=== PATIENT | female | born 1975 | race Two or more races ===

== ENCOUNTER 2017-02-08 11:35 | Emergency (ER) | payer OTHER ==
[2017-02-08 12:01] VITALS: BP 130/87
--- NOTE | 2017-02-08 12:17 | UC ---
Complaint Female HPI - HPI Summary HPI Summary: Dysuria and frequency for 1-2 days. Last uti several months ago. no current vaginal symptoms such as discharge or pain. LMP 01/16 and denies . - History Of Current Complaint Chief Complaint: UCGU Stated Complaint: URINARY Time Seen by Provider: 02/08/17 12:00 Hx Obtained From: Patient Hx Last Menstrual Period: 01/16/17 Onset/Duration: Gradual Onset Timing: Constant Severity Initially: Mild Severity Currently: Mild Character: Dull Aggravating Factor(s): Urination Associated Signs And Symptoms: Negative: Fever, Vaginal Bleeding/Discharge, Vaginal Discharge, Nausea, Vomiting(# Of Episodes =), Genital Swelling, Genital Blisters, Retained Foregin Body (Specify) - Allergies/Home Medications Allergies/Adverse Reactions: Allergies Allergy/AdvReac Type Severity Reaction Status Date / Time No Known Allergies Allergy Verified 02/08/17 11:55 Home Medications: Home Medications Atenolol TAB* [Tenormin TAB* 25 MG] 25 mg PO DAILY 02/08/17 [History Confirmed 02/08/17] Hydrochlorothiazide TAB* [Hydrodiuril TAB*] 25 mg PO DAILY 02/08/17 [History Confirmed 02/08/17] Phenazopyridine HCl [Azo Urinary Pain Relief] 95 mg PO ONCE PRN 02/08/17 [ History Confirmed 02/08/17] PMH/Surg Hx/FS Hx/Imm Hx Endocrine History Of: Denies: Diabetes, Thyroid Disease Cardiovascular History Of: Reports: Hypertension Denies: Cardiac Disorders Respiratory History Of: Denies: COPD, Asthma GI/ History Of: Denies: Ulcer - Surgical History Surgical History: Yes Surgery Procedure, Year, and Place: OVARIAN CYSTECTOMY - Family History Known Family History: Positive: Other - no related issues. - Social History Alcohol Use: Rare Substance Use Type: None Smoking Status (MU): Former Smoker When Did the Patient Quit Smoking/Using Tobacco: 05/2016 Household Exposure Type: Cigarettes - Immunization History Most Recent Influenza Vaccination: no Review of Systems All Other Systems Reviewed And Are Negative: Yes Physical Exam Triage Information Reviewed: Yes Appearance: Well-Appearing, Well-Nourished, Obese Vital Signs: Initial Vital Signs Temp 98.7 F 02/08/17 11:58 Pulse 72 02/08/17 11:58 Resp 16 02/08/17 11:58 BP 130/87 02/08/17 11:58 Pulse Ox 98 02/08/17 11:58 Vital Signs Reviewed: Yes Eye Exam: Normal ENT Exam: Normal Neck exam: Normal Respiratory Exam: Normal Cardiovascular Exam: Normal Abdominal Exam: Other - Suprapubic tenderness without guarding. Abdomen Description: Positive: Soft. Negative: CVA Tenderness (R), CVA Tenderness (L), Distended, Guarding Neurological Exam: Normal Psychological Exam: Normal Skin Exam: Normal Complaint Female Dx - Differential Dx/Diagnosis Provider Diagnoses: dysuria. possible uti. Discharge - Discharge Plan Condition: Good Disposition: HOME Prescriptions: Sulfamethox/Trimethoprim DS* [Bactrim DS 800/160 TAB*] 1 tab PO BID #14 tab Patient Education Materials: Urinary Tract Infection in Women (ED) Referrals: Keyla Rosa PA [Primary Care Provider] -
== END 2017-02-08 12:22 | disposition home or self-care (01) ==
LOC: UCCORT 11:35
DX: R30.0 Dysuria (principal); Z87.440 Personal history of urinary (tract) infections; I10 Essential (primary) hypertension; E66.9 Obesity, unspecified; Z87.891 Personal history of nicotine dependence
CPT/HCPCS: 87086; 99212; G0463

== ENCOUNTER 2017-09-18 12:44 | Emergency (ER) | payer OTHER ==
[2017-09-18 13:39] VITALS: BP 109/84
--- NOTE | 2017-09-18 13:50 | UC ---
Headache HPI - HPI Summary HPI Summary: 41 year old female presents with complains fever, chills, and backaches. - History Of Current Complaint Chief Complaint: UCRespiratory Stated Complaint: HEADACHE,FEVER Time Seen by Provider: 09/18/17 13:50 Hx Obtained From: Patient Hx Last Menstrual Period: 09/01/17 Onset/Duration: Sudden Onset Onset Of Symptoms: Gradual Timing: Constant Aggravating Factor(s): Position Change, Bright Lights Allevating Factor(s): Nothing Associated Signs And Symptoms: Positive: Negative - Allergies/Home Medications Allergies/Adverse Reactions: Allergies Allergy/AdvReac Type Severity Reaction Status Date / Time No Known Allergies Allergy Verified 09/18/17 13:39 PMH/Surg Hx/FS Hx/Imm Hx Previously Healthy: Yes - Surgical History Surgical History: Yes Surgery Procedure, Year, and Place: OVARIAN CYSTECTOMY - Family History Known Family History: Positive: Other - no related issues. - Social History Alcohol Use: Rare Substance Use Type: None Smoking Status (MU): Former Smoker When Did the Patient Quit Smoking/Using Tobacco: 05/2016 Household Exposure Type: Cigarettes - Immunization History Most Recent Influenza Vaccination: no Review of Systems Constitutional: Negative Skin: Negative Eyes: Negative ENT: Sore Throat, Ear Ache, Nasal Discharge, Sinus Congestion, Sinus Pain/ Tenderness Respiratory: Cough Cardiovascular: Negative Gastrointestinal: Negative Genitourinary: Negative Motor: Negative Neurovascular: Negative Musculoskeletal: Negative Neurological: Negative Psychological: Negative All Other Systems Reviewed And Are Negative: Yes Physical Exam Triage Information Reviewed: Yes Vital Signs: Initial Vital Signs Temp 36.7 C 09/18/17 13:35 Pulse 68 09/18/17 13:35 Resp 18 09/18/17 13:35 BP 109/84 09/18/17 13:35 Pulse Ox 98 09/18/17 13:35 Vital Signs Reviewed: Yes Eye Exam: Normal ENT Exam: Normal ENT: Positive: Pharyngeal erythema, Nasal congestion, Nasal drainage, Sinus tenderness Dental Exam: Normal Neck exam: Normal Neck: Positive: 1 Respiratory Exam: Normal Cardiovascular Exam: Normal Abdominal Exam: Normal Musculoskeletal Exam: Normal Neurological Exam: Normal Psychological Exam: Normal Skin Exam: Normal Headache Course/Dx - Differential Dx/Diagnosis Provider Diagnoses: influenza. cough. fever Discharge - Discharge Plan Condition: Stable Disposition: HOME Prescriptions: Albuterol HFA INHALER* [Ventolin HFA Inhaler*] 1 puff INH Q6H PRN #1 mdi PRN Reason: Wheezing Guaifenesin-Codeine [Cheratussin AC] 1 teasp PO Q8H PRN #120 ml MDD 15 ml PRN Reason: Cough LoraTADine TAB(NF) [Claritin 10 MG TAB(NF)] 10 mg PO DAILY #30 tab Oseltamivir CAP* [Tamiflu CAP*] 75 mg PO BID #10 cap Patient Education Materials: Influenza (ED) Forms: *Work Release Referrals: Keyla Rosa PA [Primary Care Provider] -
== END 2017-09-18 14:23 | disposition home or self-care (01) ==
LOC: UCCORT 12:44
DX: J11.1 Influenza due to unidentified influenza virus with other respiratory manifestations (principal); R05 Cough; R50.9 Fever, unspecified; Z87.891 Personal history of nicotine dependence
CPT/HCPCS: 87502; 87651; 99212; G0463

== ENCOUNTER 2018-05-03 16:22 | Emergency (ER) | payer OTHER ==
[2018-05-03 16:45] VITALS: BP 131/82
--- NOTE | 2018-05-03 16:49 | UC ---
Throat Pain/Nasal [place]wey HPI - HPI Summary HPI Summary: The patient is a 42-year-old female with a 2 day history of sore throat and headache. She has also had postnasal drip but she denies any nasal congestion or stuffiness. She denies any fever or chills. She denies any cough chest pain or shortness of breath. She has no nausea vomiting or diarrhea. - History of Current Complaint Chief Complaint: UCGeneralIllness Stated Complaint: HEADACHE, SORE THROAT Time Seen by Provider: 05/03/18 16:30 Hx Obtained From: Patient Hx Last Menstrual Period: 04/30/18 Onset/Duration: Gradual Onset Severity: Moderate Pain Intensity: 5 Pain Scale Used: 0-10 Numeric Cough: None Associated Signs & Symptoms: Positive: Negative - Epiglottits Risk Factors Epiglottis Risk Factors: Negative - Allergies/Home Medications Allergies/Adverse Reactions: Allergies Allergy/AdvReac Type Severity Reaction Status Date / Time No Known Allergies Allergy Verified 05/03/18 16:36 Home Medications: Home Medications Acetaminophen TAB* [Tylenol TAB*] 650 mg PO Q4H PRN 05/03/18 [History Confirmed 05/03/18] Citalopram TAB* [CeleXA TAB*] 40 mg PO DAILY 05/03/18 [History Confirmed ] LoraTADine TAB(NF) [Claritin 10 MG TAB(NF)] 10 mg PO DAILY PRN 05/03/18 [ History Confirmed 05/03/18] PMH/Surg Hx/FS Hx/Imm Hx Previously Healthy: Yes - HELLP syndrome - Surgical History Surgical History: Yes Surgery Procedure, Year, and Place: OVARIAN CYSTECTOMY - Family History Known Family History: Positive: Hypertension, Other - no related issues. - Social History Alcohol Use: Occasionally Substance Use Type: None Smoking Status (MU): Former Smoker When Did the Patient Quit Smoking/Using Tobacco: 05/2016 Household Exposure Type: Cigarettes - Immunization History Most Recent Influenza Vaccination: no Review of Systems Constitutional: Negative Skin: Negative Eyes: Negative ENT: Sore Throat Respiratory: Negative Cardiovascular: Negative Gastrointestinal: Negative Genitourinary: Negative Motor: Negative Neurovascular: Negative Musculoskeletal: Negative Neurological: Headache Psychological: Negative Is Patient Immunocompromised?: No All Other Systems Reviewed And Are Negative: Yes Physical Exam Triage Information Reviewed: Yes Appearance: Well-Appearing, No Pain Distress, Well-Nourished Vital Signs: Initial Vital Signs Temp 98.2 F 05/03/18 16:40 Pulse 62 05/03/18 16:40 Resp 18 05/03/18 16:40 BP 131/82 05/03/18 16:40 Pulse Ox 100 05/03/18 16:40 Vital Signs Reviewed: Yes Eyes: Positive: Conjunctiva Clear ENT: Positive: Hearing grossly normal, Pharyngeal erythema, Uvula midline. Negative: Nasal drainage, TMs normal, Tonsillar swelling, Tonsillar exudate, Trismus, Muffled voice, Hoarse voice, Sinus tenderness Neck: Positive: Supple, Nontender, No Lymphadenopathy Respiratory: Positive: Lungs clear, Normal breath sounds, No respiratory distress, No accessory muscle use Cardiovascular: Positive: RRR Abdomen Description: Positive: Nontender, No Organomegaly Bowel Sounds: Positive: Present Musculoskeletal: Positive: ROM Intact, No Edema Neurological: Positive: Alert Psychological Exam: Normal Skin Exam: Normal Diagnostics - Laboratory Diagnostic Studies Completed/Ordered: strep (-) Throat Pain/Nasal Course/Dx - Differential Dx/Diagnosis Provider Diagnoses: viral URI/Pharyngitis Discharge - Sign-Out/Discharge Documenting (check all that apply): Patient Departure - Discharge Plan Condition: Stable Disposition: HOME Patient Education Materials: Pharyngitis (ED) Forms: *Work Release Referrals: Keyla Rosa PA [Primary Care Provider] - If Needed Additional Instructions: rest fluids tylenol or advil if needed - Billing Disposition and Condition Condition: STABLE Disposition: Home
== END 2018-05-03 17:10 | disposition home or self-care (01) ==
LOC: UCCORT 16:22
DX: J02.8 Acute pharyngitis due to other specified organisms (principal); Z87.891 Personal history of nicotine dependence
CPT/HCPCS: 87651; 99212; G0463

== ENCOUNTER 2018-11-02 08:00 | Emergency (ER) | payer OTHER ==
--- OUTSIDE RECORDS SUMMARY | 2018-11-02 08:08 | XMS REPORT | Continuity of Care Document ---
:1975 External Reference #:[id number] Author Name Keyla Rosa RPAC Address [address] [place] [address] Care Team Providers Name Role Phone Keyla Rosa RPAC Care Team Information Communications Analyst Unavailable Keyla Rosa RPAC Primary Care Physician Unavailable Payers Type Date Identification Numbers Payment Provider Subscriber Policy Number: [id number] Lifetime Benefit Solution Tanja Lares Group Number: [id number] [address] [address] PayID: [place] [address] Advance Directives Description No Information Available Problems Date Description Provider Status Onset: 05/31/2012 Obesity Keyla Rosa RPAC Active Onset: 05/31/2012 Hyperlipidemia Keyla Rosa RPAC Active Onset: 11/29/2011 Benign essential hypertension Keyla Rosa RPAC Active Onset: 01/15/2016 HELLP syndrome Keyla Rosa RPAC Active Note: 12/2015 Onset: 06/30/2016 Hyperglycemia Keyla Rosa RPAC Active Note: controlled with diet Onset: 04/05/2017 Dysthymia Keyla Rosa RPAC Active Onset: 12/28/2017 Acute upper respiratory infection, Keyla Rosa RPAC Resolved unspecified Resolved: 06/30/2018 Family History Date Family Member(s) Problem(s) Comments General Adopted Social History Type Date Description Comments Sex Unknown Lives With Diet Healthy, Well Balanced Occupation Currently Working @ [email or web address] project manager at [employer] Tobacco Use Start: Unknown End: Former Cigarette Smoker social Unknown ETOH Use Drinks Alcoholic Beverages Rarely Tobacco Use Start: Unknown End: Patient is a former smoker Unknown Smoking Status Reviewed: 10/15/18 Patient is a former smoker Allergies, Adverse Reactions, Alerts Date Description Reaction Status Severity Comments 06/29/2012 Novocain Active Medications Medication Date Status Form Strength Qnty SIG Indications Ordering Provider Irbesartan 10/15 Active Tablets 300mg 30tab 1 by mouth I10 Kwaku, s every day Angela Liriano Buspirone HCL 07/31 Active Tablets 5mg 120ta 1-2 tabs F41.9 Ames, bs by mouth Heri, bid-tid M.D. for anxiety Atenolol 07/19 Active Tablets 25mg 60tab 1 tab by I10 Kwaku, s mouth Heri, twice a M.D. day Hydrochlorothiazide 07/19 Active Tablets 25mg 30tab 1 by mouth I10 Kwaku, s every in [facility], the M.D. 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 Irbesartan 06/29 Hx Tablets 150mg 30tab take 1 I10 Ames, s tablet by Heri, - mouth once M.D. 10/15 /2018 Penicillin V 01/27 Hx Tablets 500mg 21tab 1 tab by N61.0 Kwaku, Potassium s mouth Heri, three M.D. times a day Hydrochlorothiazide 09/20 Hx Capsules 12.5mg 90cap 1 cap by I10 Kwaku, s mouth Heri, - every day M.D. 07/19 in the morning Nexium 09/20 Hx Capsules 20mg 90cap 1 by mouth K21.9 Nile, s every day Rocky Carvalho DO Work Note 08/16 Hx Evaluated Nile at [facility] Rocky Carvalho - Care on DO 09/2008/16/16. /2016 Please excuse from work. Atenolol 06/30 Hx Tablets 25mg 180ta 1 tab by I10 Kwaku, bs mouth once Heri, - a day M.D. 07/19 Prenatabs Rx 04/11 Hx Tablets 30tab 1 by mouth Nile, s bid Rocky Carvalho, DO Methyldopa 04/11 Hx Tablets 500mg 180ta 1 by mouth I10 Kwaku, bs twice a Heri, - day M.D. 06/29 Citalopram 03/17 Hx Tablets 10mg 90tab 1 by mouth F43.23 Elier Dowd s every day Rocky Carvalho, - DO 06/30 Labetalol HCL 03/04 Hx Tablets 100mg 2 tab by Nile, mouth Rocky Carvalho, - twice a DO Methyldopa 03/04 Hx Tablets 250mg 60tab 1 tab by I10 Nile, s mouth Rocky Carvalho, - twice a DO Note For Work 07/14 Hx Treated for foot Rocky Carvalho, - pain, DO 03/17 allow sneakers Klor-Con M20 06/23 Hx Tablets 20Meq 30tab 1 by mouth Nile, ER s every day Rocky Carvalho, - DO 07/14 Klor-Con 10 05/14 Hx Tablets 10Meq 21tab 1 by mouth Nile ER s every day Rocky Carvalho, - DO 06/23 Folic Acid 12/10 Hx Tablets 1mg 90tab 1 by mouth Jannette s every day Elena Escobar MD 11/11 Citalopram 08/12 Hx Tablets 10mg 30tab 1 by mouth Elier Bhatia s every day Elena marx MD 07/14 for taper Methyldopa 04/16 Hx Tablets 500mg 180ta take one Nile bs tablet by Rocky Carvalho, - mouth DO 03/04 twice a day Immunizations CPT Code Status Date Vaccine Lot # [id number] Given 08/25/2008 Pneumovax Injection 52838 Given 06/21/2007 flu vaccination 22054 Given 08/17/2005 flu vaccination Vital Signs Date Vital Result Comment 10/15/2018 10:10am BP Systolic Sitting Left Arm 142 mmHg BP Diastolic Sitting Left Arm 96 mmHg Body Temperature 98.1 F Heart Rate 64 /min Height 65.75 inches 5'5.75" Weight 226.00 lb BMI (Body Mass Index) 36.8 kg/m2 BSA (Body Surface Area) 2.10 m2 [place] body weight in kilograms 58 kg O2 % BldC Oximetry 97 % 07/31/2018 10:28am BP Systolic 169 mmHg BP Diastolic 94 mmHg Body Temperature 98.0 F Heart Rate 71 /min Respiratory Rate 18 /min Height 65.75 inches 5'5.75" Weight 224.50 lb BMI (Body Mass Index) 36.5 kg/m2 BSA (Body Surface Area) 2.10 m2 [place] body weight in kilograms 58 kg O2 % BldC Oximetry 97 % 06/29/2018 9:29am BP Systolic 153 mmHg BP Diastolic 104 mmHg Body Temperature 97.2 F Heart Rate 81 /min Respiratory Rate 18 /min Height 65.75 inches 5'5.75" Weight 227.00 lb BMI (Body Mass Index) 36.9 kg/m2 BSA (Body Surface Area) 2.10 m2 [place] body weight in kilograms 58 kg O2 % BldC Oximetry 97 % 12/28/2017 9:20am BP Systolic Sitting Left Arm 124 mmHg BP Diastolic Sitting Left Arm 80 mmHg Heart Rate 63 /min reg Respiratory Rate 24 /min Height 65.75 inches 5'5.75" Weight 230.00 lb BMI (Body Mass Index) 37.4 kg/m2 BSA (Body Surface Area) 2.12 m2 [place] body weight in kilograms 58 kg O2 % BldC Oximetry 98 % ra 07/19/2017 10:50am BP Systolic Sitting Right Arm 126 mmHg BP Diastolic Sitting Right Arm 80 mmHg Heart Rate 64 /min Height 65.75 inches 5'5.75" Weight 227.00 lb BMI (Body Mass Index) 36.9 kg/m2 BSA (Body Surface Area) 2.10 m2 [place] body weight in kilograms 58 kg O2 % BldC Oximetry 98 % ra 07/05/2017 8:58am BP Systolic Sitting Right Arm 140 mmHg BP Diastolic Sitting Right Arm 102 mmHg Heart Rate 76 /min Respiratory Rate 16 /min Height 65.75 inches 5'5.75" Weight 229.00 lb BMI (Body Mass Index) 37.2 kg/m2 BSA (Body Surface Area) 2.11 m2 [place] body weight in kilograms 58 kg 04/05/2017 9:02am BP Systolic Sitting Right Arm 134 mmHg BP Diastolic Sitting Right Arm 74 mmHg Body Temperature 97.7 F Heart Rate 70 /min Respiratory Rate 18 /min Height 65.75 inches 5'5.75" Weight 221.00 lb BMI (Body Mass Index) 35.9 kg/m2 BSA (Body Surface Area) 2.08 m2 [place] body weight in kilograms 58 kg O2 % BldC Oximetry 97 % ra 01/27/2017 2:51pm BP Systolic Sitting Right Arm 140 mmHg BP Diastolic Sitting Right Arm 90 mmHg Heart Rate 78 /min Height 65.75 inches 5'5.75" Weight 225.00 lb BMI (Body Mass Index) 36.6 kg/m2 BSA (Body Surface Area) 2.10 m2 [place] body weight in kilograms 58 kg O2 % BldC Oximetry 98 % 11/25/2016 1:52pm BP Systolic Sitting Right Arm 128 mmHg BP Diastolic Sitting Right Arm 80 mmHg Heart Rate 68 /min Height 65.75 inches 5'5.75" Weight 218.25 lb BMI (Body Mass Index) 35.5 kg/m2 BSA (Body Surface Area) 2.07 m2 O2 % BldC Oximetry 97 % 09/20/2016 9:45am BP Systolic Sitting Right Arm 142 mmHg BP Diastolic Sitting Right Arm 80 mmHg Heart Rate 66 /min Height 65.75 inches 5'5.75" Weight 216.50 lb BMI (Body Mass Index) 35.2 kg/m2 BSA (Body Surface Area) 2.06 m2 O2 % BldC Oximetry 96 % 08/16/2016 10:03am BP Systolic Sitting Right Arm 144 mmHg BP Diastolic Sitting Right Arm 100 mmHg Heart Rate 80 /min Height 65.75 inches 5'5.75" Weight 219.50 lb BMI (Body Mass Index) 35.7 kg/m2 BSA (Body Surface Area) 2.08 m2 07/15/2016 9:28am BP Systolic Sitting Right Arm 138 mmHg BP Diastolic Sitting Right Arm 100 mmHg Heart Rate 82 /min Height 65.75 inches 5'5.75" Weight 212.25 lb BMI (Body Mass Index) 34.5 kg/m2 BSA (Body Surface Area) 2.05 m2 06/30/2016 10:32am BP Systolic Sitting Right Arm 152 mmHg BP Diastolic Sitting Right Arm 100 mmHg Height 65.75 inches 5'5.75" Weight 215.00 lb BMI (Body Mass Index) 35.0 kg/m2 BSA (Body Surface Area) 2.06 m2 04/11/2016 3:39pm BP Systolic Sitting Right Arm 148 mmHg BP Diastolic Sitting Right Arm 90 mmHg Height 65.75 inches 5'5.75" Weight 207.00 lb BMI (Body Mass Index) 33.7 kg/m2 BSA (Body Surface Area) 2.02 m2 03/17/2016 2:11pm BP Systolic Sitting Right Arm 138 mmHg BP Diastolic Sitting Right Arm 80 mmHg Height 65.75 inches 5'5.75" Weight 220.00 lb BMI (Body Mass Index) 35.8 kg/m2 BSA (Body Surface Area) 2.08 m2 03/04/2016 2:01pm BP Systolic Sitting Right Arm 146 mmHg BP Diastolic Sitting Right Arm 100 mmHg Height 65.75 inches 5'5.75" Weight 171.00 lb BMI (Body Mass Index) 27.8 kg/m2 BSA (Body Surface Area) 1.87 m2 11/11/2015 3:09pm BP Systolic 118 mmHg BP Diastolic 74 mmHg Height 65.75 inches 5'5.75" Weight 224.00 lb BMI (Body Mass Index) 36.4 kg/m2 BSA (Body Surface Area) 2.09 m2 Last Menstrual Period [id number] 07/14/2015 10:50am BP Systolic 140 mmHg BP Diastolic 72 mmHg Weight 217.25 lb Last Menstrual Period [id number] 05/11/2015 10:14am Last Menstrual Period [id number] 05/11/2015 10:11am BP Systolic 132 mmHg BP Diastolic 76 mmHg Height 66 inches 5'6" Weight 212.00 lb BMI (Body Mass Index) 34.2 kg/m2 BSA (Body Surface Area) 2.05 m2 12/10/2014 10:20am BP Systolic 138 mmHg BP Diastolic 82 mmHg Height 66 inches 5'6" Weight 210.00 lb 08/12/2014 9:04am BP Systolic 134 mmHg BP Diastolic 82 mmHg Height 66 inches 5'6" Weight 216.00 lb 05/12/2014 1:26pm BP Systolic 132 mmHg BP Diastolic 90 mmHg Height 66 inches 5'6" Weight 208.00 lb 04/16/2014 1:00pm BP Systolic 158 mmHg BP Diastolic 92 mmHg Height 66 inches 5'6" Weight 209.00 lb 03/05/2014 1:30pm BP Systolic 132 mmHg BP Diastolic 78 mmHg Height 66 inches 5'6" Weight 203.00 lb 04/16/2013 10:05am BP Systolic 110 mmHg BP Diastolic 70 mmHg Height 66 inches 5'6" Weight 193.00 lb 04/02/2013 11:34am BP Systolic 110 mmHg BP Diastolic 68 mmHg Height 66 inches 5'6" Weight 191.00 lb 12/13/2012 9:10am BP Systolic 136 mmHg BP Diastolic 82 mmHg Height 66 inches 5'6" Weight 196.00 lb 08/15/2012 10:58am BP Systolic 128 mmHg BP Diastolic 84 mmHg Height 66 inches 5'6" Weight 213.00 lb 07/03/2012 1:20pm BP Systolic 118 mmHg BP Diastolic 60 mmHg Height 66 inches 5'6" Weight 211.00 lb 06/29/2012 1:42pm BP Systolic 128 mmHg BP Diastolic 68 mmHg Height 66 inches 5'6" Weight 211.00 lb 03/06/2012 10:27am BP Systolic 122 mmHg BP Diastolic 76 mmHg Height 66 inches 5'6" Weight 211.00 lb 12/01/2011 10:13am BP Systolic 150 mmHg BP Diastolic 90 mmHg Height 66 inches 5'6" Weight 212.00 lb Results Test Date Facility Test Result H/L Range Note Rapid Influenza 09/26/2018 [facility] Influenza A NEGATIVE Negative 1 A & B Molecular [phone] Molecular Influenza B Molecular NEGATIVE Negative Glycohemoglobin 06/29/2018 [facility] Glycohemoglobin 6.0 % N 4.2-6.3 2, 3 A1c [address] [facility] (A1c) [place], [place] [id number] [phone] eAG 126 mg/dL Basic Metabolic Panel 06/29/2018 [facility] Glucose 92 mg/dL N 74-106 [address] [place], [place] [id number] [phone] BUN 10 mg/dL N 7-18 Creatinine 0.9 mg/dL N 0.6-1.3 Glom Filtration Rate, Estimate >60 mL/min >60 If >60 mL/min >60 4 BUN/Creat 11.1 ratio Sodium 140 mmol/L N 136-145 Potassium 3.9 mmol/L N 3.5-5.1 Chloride 104 mmol/L N 98-107 Carbon Dioxide 28 mmol/L N 21-32 Anion Gap 8 mEq/L N 8-16 Calcium 9.0 mg/dL N 8.5-10.1 LDL Cholesterol Profile 06/29/2018 [facility] Cholesterol 181 mg/dL <[address] [place] [address] [phone] Triglycerides 91 mg/dL <150 6 HDL Cholesterol 45 mg/dL >40 7 LDL-Cholesterol 118 mg/dL < 100 8 Liver Function Tests 06/29/2018 [facility] Total Protein 8.2 g/dL N 6.4-8.[address] [place] [address] [phone] Albumin 4.0 g/dL N 3.4-5.0 Globulin 4.2 g/dL N 1.9-4.3 Alb/Glob 1.0 ratio Bilirubin,Total 0.7 mg/dL N 0.2-1.0 Bilirubin,Direct 0.1 mg/dL N 0.0-0.2 Bilirubin,Indirect 0.6 mg/dL N 0.0-0.9 Sgot/Ast 10 U/L Low 15-37 9 SGPT/Alt 20 U/L N 12-78 Alkaline Phosphatase 105 U/L N 45-117 Urine Culture 06/29/2018 [facility] Urine Culture MIXED URETHRAL F [address] <SEE NOTE> [place] [address] [phone] Quantity > 100,000 CFU/mL 11 Urine Dipstick 06/29/2018 [facility] Ua Color Yellow Yellow Ua Clarity Clear Clear Ua Leuko Positive (+) Negative Ua Nitrite Negative Negative Ua Urobilinogen + Low 0.2 - 1.0 E.U./dL Ua Protein + Negative Ua PH 6.0 Low 6.5-7.5 Ua Blood Negative Negative Ua Specific Rock 1.030 1.010-1.030 Ua Ketones + Negative Ua Bilirubin 1+ High Negative Ua Glucose Negative Negative pH Ur Strip.auto 06/07/2018 N2N/CCD Import pH Ur Strip.auto 5.0 Low 6.5- 7.5 Urine total 06/07/2018 N2N/CCD Import Urine total Negative Negative bilirubin bilirubin detection by detection by automated test automated test strip Urine human 06/07/2018 N2N/CCD Import Urine human Negative Negative chorionic chorionic gonadotropin gonadotropin (hCG) detection (hCG) detection Urine hemoglobin 06/07/2018 N2N/CCD Import Urine hemoglobin Negative Negative detection by detection by automated test automated test strip strip Urine glucose 06/07/2018 N2N/CCD Import Urine glucose 100 High Negative measurement by measurement by automated test automated test strip strip (mass/volume) Urine appearance 06/07/2018 N2N/CCD Import Urine appearance Clear Clear determination determination Specific gravity 06/07/2018 N2N/CCD Import Specific gravity 1.025 1.010- 1.030 of Urine by of Urine by Automated test Automated test strip strip Prot Ur 06/07/2018 N2N/CCD Import Prot Ur 100 High Negative Strip.auto-mCnc Strip.auto-mCnc Nitrite Ur Ql 06/07/2018 N2N/CCD Import Nitrite Ur Ql Positive High Negative Strip.auto Strip.auto Urine HCG 06/07/2018 [facility] Urine HCG NEGATIVE Negative 12, (Qualitative) [address] (Qualitative) 13 [place] [address] [phone] Source: URINE, CLEAN CAT <SEE NOTE> 14 Ua RFX Micro & Culture 06/07/2018 [facility] Urine Color ORANGE Yellow II [address] [place] [address] [phone] Urine Clarity CLEAR Clear Urine Glucose - Dipstick 100 mg/dL High Negative Urine Bilirubin - Dipstick NEGATIVE Negative Urine Ketone 15 mg/dL High Negative Urine Specific Rock 1.025 N 1.010-1.030 Urine Blood NEGATIVE Negative Urine PH 5.0 Low 6.5-7.5 Urine Protein - Dipstick 100 mg/dL High Negative Urine Urobilinogen - Dipstick >=8.0 E.U./dL High 0.2-1.0 Urine Nitrite - Dipstick POSITIVE Abnormal Negative Urine Leuk Esterase TRACE Abnormal Negative Urine RBC 0-2 rbc/hpf 0-2 Urine WBC 2-5 wbc/hpf 0-7 Urine Epithelial Cells MODERATE /lpf None Seen 15 Urine Bacteria FEW None Seen Source: URINE, CLEAN CAT <SEE NOTE> 16 Culture If 06/07/2018 [facility] Culture If CULTURE TO 17 Indicated Comment [address] Indicated Comment FOLLO <[place] [address] NOTE> [phone] Source: URINE, CLEAN CAT <SEE NOTE> 18 Urine Culture 06/07/2018 [facility] Urine Culture URETHRAL AMADOU [address] [place] [address] [phone] Quantity > 100,000 CFU/mL 19 Bacteria 06/07/2018 N2N/CCD Import Bacteria Few None Seen detection in detection in urine sediment urine sediment by light micr by light microscopy Color Ur 06/07/2018 N2N/CCD Import Color Ur [place] Yellow Epithelial 06/07/2018 N2N/CCD Import Epithelial Moderate None Seen cells detection cells in urine detection in sediment by li urine sediment by light microscopy Ketones Ur 06/07/2018 N2N/CCD Import Ketones Ur 15 High Negative Strip.auto-mCnc Strip.auto-mCn c Laboratory 06/07/2018 N2N/CCD Import Laboratory Culture To comment [Text] comment [Text] Follow in Report in Report Narrative Narrative Leukocyte 06/07/2018 N2N/CCD Import Leukocyte Trace High Negative esterase Ur Ql esterase Ur Ql Strip.auto Strip.auto Laboratory test 05/03/2018 [facility] Rapid Strep Negative Negative 20 finding [phone] Molecular Renal Function 04/05/2017 [facility] Glucose 101 mg/dL N 74-106 21 Panel [address] [place], [place] [id number] [phone] BUN 11 mg/dL N 7-18 Creatinine 0.8 mg/dL N 0.6-1.3 Glom Filtration Rate, Estimate >60 mL/min >60 If >60 mL/min >60 22 BUN/Creat 13.7 ratio Sodium 140 mmol/L N 136-145 Potassium 3.8 mmol/L N 3.5-5.1 Chloride 104 mmol/L N 98-107 Carbon Dioxide 29 mmol/L N 21-32 Anion Gap 7 mEq/L Low 8-16 Calcium 9.2 mg/dL N 8.5-10.1 Phosphorous 2.4 mg/dL Low 2.5-4.0 Albumin 3.7 g/dL N 3.4-5.0 Ua RFX Micro & Culture 03/27/2017 [facility] Urine Color YELLOW Yellow 23 II [address] [place], [place] [id number] [phone] Urine Clarity CLEAR Clear Urine Glucose - Dipstick NEGATIVE mg/dL Negative Urine Bilirubin - Dipstick NEGATIVE Negative Urine Ketone TRACE mg/dL High Negative Urine Specific Rock 1.025 N 1.010-1.030 Urine Blood NEGATIVE Negative Urine PH 6.0 Low 6.5-7.5 Urine Protein - Dipstick NEGATIVE mg/dL Negative Urine Urobilinogen - Dipstick 0.2 E.U./dL N 0.2-1.0 Urine Nitrite - Dipstick NEGATIVE Negative Urine Leuk Esterase NEGATIVE Negative Source: URINE, CLEAN CAT <SEE NOTE> 24 Urine Culture 03/27/2017 [facility] Urine Culture URETHRAL AMADOU [address] [place], [place] [id number] [phone] Quantity > 100,000 CFU/mL N 25 Laboratory test 02/08/2017 [facility] Urine Culture SEE RESULT 26, 27 finding [phone] BELOW CBS W/Automated 06/23/2016 [facility] White Blood 8.6 K/uL N 3.1-[address] Count 0.7 [place] [address] [phone] Red Blood Count 4.69 M/uL N 3.90-5.40 Hemoglobin 12.8 gm/dL N 11.6-15.8 Hematocrit 38.5 % N 36.0-46.1 Mean Cell Volume 82.1 fl N 80.9-99.0 Mean Corpuscular HGB 27.3 pg N 25.9-32.7 Mean Corpuscular HGB Conc 33.2 g/dL N 30.8-34.3 Platelet Count 272 K/uL N 155-360 Red Cell Distri Width SD 46.2 fl N 3-47 Red Cell Distri Width %CV 15.7 % High 11.7-14.4 Mean Platelet Volume 10.2 fL N 8.9-12.4 Neut% 68.7 % N 40.4-72.8 Lymph % 24.3 % N 17.0-46.1 [place] % 5.5 % N 4.3-13.2 Eo% 1.4 % N 0.0-6.6 Bas% 0.1 % N 0.0-1.1 Neut# 5.88 K/uL N 1.8-7.0 Lymph # 2.08 K/uL N 1.8-7.0 [place] # 0.47 K/uL N 0.3-0.9 Eos # 0.12 K/uL N 0.0-0.5 Baso # 0.01 K/uL N 0.0-0.1 Comprehensive Metabolic 06/23/2016 [facility] Glucose 98 mg/dL N 74-[address] [place], [place] [id number] [phone] BUN 9 mg/dL N 7-18 Creatinine 0.8 mg/dL N 0.6-1.3 Glom Filtration Rate, Estimate >60 mL/min N >60 If >60 mL/min N >60 29 BUN/Creat 11.2 ratio N Sodium 140 mmol/L N 136-145 Potassium 3.5 mmol/L N 3.5-5.1 Chloride 104 mmol/L N 98-107 Carbon Dioxide 31 mmol/L N 21-32 Anion Gap 5 mEq/L Low 8-16 Calcium 9.1 mg/dL N 8.5-10.1 Total Protein 7.6 g/dL N 6.4-8.2 Albumin 3.7 g/dL N 3.4-5.0 Globulin 3.9 g/dL N 1.9-4.3 Alb/Glob 0.9 ratio N Bilirubin,Total 0.5 mg/dL N 0.2-1.0 Sgot/Ast 7 U/L Low 15-37 30 SGPT/Alt 18 U/L N 12-78 Alkaline Phosphatase 102 U/L N 45-117 Laboratory test finding 06/23/2016 [facility] Lipase 130 U/L N 73-393 [address] [place] [address] [phone] Lactic Acid 0.8 mmol/L N 0.4-1.9 Laboratory test 06/23/2016 N2N/CCD Import Alanine Aminotransferase 18 12 -78 finding (Alt/SGPT) Albumin/Globulin Ratio 0.9 BUN/Creatinine Ratio 11.2 Basophils # (Auto) 0.01 0.0-0.1 Basophils (%) (Auto) 0.1 0.0-1.1 Blood Urea Nitrogen 9 7-18 Calcium Level 9.1 8.5-10.1 Carbon Dioxide Level 31 21-32 Chloride Level 104 98-107 Eosinophils # (Auto) 0.12 0.0-0.5 Eosinophils (%) (Auto) 1.4 0.0-6.6 Glucose Screen 98 74-106 Lymphocytes (%) (Auto) 24.3 17.0-46.1 Mean Corpuscular Hemoglobin 27.3 25.9-32.7 Mean Corpuscular Hemoglobin Concent 33.2 30.8-34.3 Mean Corpuscular Volume 82.1 80.9-99.0 Monocytes # (Auto) 0.47 0.3-0.9 Monocytes (%) (Auto) 5.5 4.3-13.2 Neutrophils (%) (Auto) 68.7 40.4-72.8 Potassium Level 3.5 3.5-5.1 RDW Coefficient of Variation 15.7 High 11.7-14.4 Red Cell Distribution Width 46.2 3-47 Sodium Level 140 136-145 Total Bilirubin 0.5 0.2-1.0 Chlamydia/GC 06/23/2016 [facility] Chlamydia Negative N Negative Joan, Urine [address] Trachomatis,[place] [address] -Joan [phone] Neisseria Gonorrhoeae,Ur -Joan Negative N Negative 31 Urine Ketones 06/23/2016 N2N/CCD Import Urine Ketones Negative Negative Aspartate Amino 06/23/2016 N2N/CCD Import Aspartate Amino 7 Low 15-37 Transf (Ast/Sgot) Transf (Ast/Sgot) Lactic Acid Level 06/23/2016 N2N/CCD Import Lactic Acid Level 0.8 0.4- 1.9 Lymphocytes # 06/23/2016 N2N/CCD Import Lymphocytes # 2.08 1.8-7.0 (Auto) (Auto) Neutrophils # 06/23/2016 N2N/CCD Import Neutrophils # 5.88 1.8-7.0 (Auto) (Auto) Urine HCG 06/23/2016 [facility] Urine HCG NEGATIVE N Negative 32 (Qualitative) [address] (Qualitative) [place] [address] [phone] Source: URINE, CLEAN CAT <SEE NOTE> 33 Urine Glucose (Ua) 06/23/2016 N2N/CCD Import Urine Glucose Negative Negative (Ua) Laboratory test 06/23/2016 N2N/CCD Import Urine Bilirubin Negative Negative finding Urine Leukocyte Esterase Negative Negative Urine Nitrite Negative Negative Urine Protein Negative Negative Urine Urobilinogen 0.2 0.2-1.0 Ua RFX Microscopic & 06/23/2016 [facility] Urine Color YELLOW N Yellow Cult If Inicated [address] [place] [address] [phone] Urine Clarity CLEAR N Clear Urine Glucose - Dipstick NEGATIVE mg/dL N Negative Urine Bilirubin - Dipstick NEGATIVE N Negative Urine Ketone NEGATIVE mg/dL N Negative Urine Specific Rock 1.010 N 1.010-1.030 Urine Blood NEGATIVE N Negative Urine PH 6.0 Low 6.5-7.5 Urine Protein - Dipstick NEGATIVE mg/dL N Negative Urine Urobilinogen - Dipstick 0.2 E.U./dL N 0.2-1.0 Urine Nitrite - Dipstick NEGATIVE N Negative Urine Leuk Esterase NEGATIVE N Negative Source: URINE, CLEAN CAT <SEE NOTE> 34 CBC W/Automated 01/14/2016 [facility] White Blood 15.1 K/uL High 3.1-10.[address] [place] [address] [phone] Red Blood Count 2.93 M/uL Low 3.90-5.40 Hemoglobin 8.6 gm/dL Low 11.6-15.8 Hematocrit 26.9 % Low 36.0-46.1 Mean Cell Volume 91.8 fl 80.9-99.0 Mean Corpuscular HGB 29.4 pg 25.9-32.7 Mean Corpuscular HGB Conc 32.0 g/dL 30.8-34.3 Platelet Count 100 K/uL Low 155-360 35 Red Cell Distri Width SD 53.8 fl High 3-47 Red Cell Distri Width %CV 18.4 % High 11.7-14.4 Mean Platelet Volume 12.6 fL High 8.9-12.4 Neut% 72.1 % 40.4-72.8 Lymph % 23.0 % 17.0-46.1 [place] % 4.4 % 4.3-13.2 Eo% 0.4 % 0.0-6.6 Bas% 0.1 % 0.0-1.1 Neut# 10.84 K/uL High 1.8-7.0 Lymph # 3.47 K/uL 1.8-7.0 [place] # 0.67 K/uL 0.3-0.9 Eos # 0.06 K/uL 0.0-0.5 Baso # 0.02 K/uL 0.0-0.1 Laboratory test 01/14/2016 [facility] Slide Review . [address] [place] [address] [phone] Comprehensive 01/14/2016 [facility] Glucose 81 mg/dL 74-106 Metabolic Panel [address] [place] [address] [phone] BUN 13 mg/dL 7-18 Creatinine 0.6 mg/dL 0.6-1.3 Glom Filtration Rate, Estimate >60 mL/min >60 If >60 mL/min >60 37 BUN/Creat 21.6 ratio Sodium 141 mmol/L 136-145 Potassium 3.2 mmol/L Low 3.5-5.1 Chloride 107 mmol/L 98-107 Carbon Dioxide 25 mmol/L 21-32 Anion Gap 9 mEq/L 8-16 Calcium 5.8 mg/dL Low 8.5-10.1 Total Protein 5.0 g/dL Low 6.4-8.2 Albumin 1.8 g/dL Low 3.4-5.0 Globulin 3.2 g/dL 1.9-4.3 Alb/Glob 0.6 ratio Bilirubin,Total 0.4 mg/dL 0.2-1.0 Sgot/Ast 38 U/L High 15-37 SGPT/Alt 138 U/L High 12-78 Alkaline Phosphatase 134 U/L High 45-117 Laboratory test 01/13/2016 [facility] Magnesium 7.1 mg/dL High 1.8-2.4 38 finding [address] [place], [place] [address] [phone] Comprehensive 01/13/2016 [facility] Glucose 137 mg/dL High 74-106 Metabolic Panel [address] [place], [place] [address] [phone] BUN 11 mg/dL 7-18 Creatinine 0.6 mg/dL 0.6-1.3 Glom Filtration Rate, Estimate >60 mL/min >60 If >60 mL/min >60 39 BUN/Creat 18.3 ratio Sodium 139 mmol/L 136-145 Potassium 3.7 mmol/L 3.5-5.1 Chloride 106 mmol/L 98-107 Carbon Dioxide 24 mmol/L 21-32 Anion Gap 9 mEq/L 8-16 Calcium 6.1 mg/dL Low 8.5-10.1 Total Protein 5.5 g/dL Low 6.4-8.2 Albumin 1.9 g/dL Low 3.4-5.0 Globulin 3.6 g/dL 1.9-4.3 Alb/Glob 0.5 ratio Bilirubin,Total 0.5 mg/dL 0.2-1.0 Sgot/Ast 55 U/L High 15-37 SGPT/Alt 180 U/L High 12-78 Alkaline Phosphatase 152 U/L High 45-117 Laboratory test 01/13/2016 [facility] 643 U/L High 84-246 40 finding [address] [place] [address] [phone] CBC W/Automated 01/13/2016 [facility] White Blood 21.8 K/uL High 3.1-10.[address] [place] [address] [phone] Red Blood Count 3.01 M/uL Low 3.90-5.40 Hemoglobin 9.0 gm/dL Low 11.6-15.8 Hematocrit 27.0 % Low 36.0-46.1 Mean Cell Volume 89.7 fl 80.9-99.0 Mean Corpuscular HGB 29.9 pg 25.9-32.7 Mean Corpuscular HGB Conc 33.3 g/dL 30.8-34.3 Platelet Count 81 K/uL Low 155-360 Red Cell Distri Width SD 51.3 fl High 3-47 Red Cell Distri Width %CV 17.5 % High 11.7-14.4 Mean Platelet Volume 12.9 fL High 8.9-12.4 Neut% 82.0 % High 40.4-72.8 Lymph % 13.2 % Low 17.0-46.1 [place] % 4.7 % 4.3-13.2 Eo% 0.0 % 0.0-6.6 Bas% 0.1 % 0.0-1.1 Neut# 17.85 K/uL High 1.8-7.0 Lymph # 2.87 K/uL 1.8-7.0 [place] # 1.03 K/uL High 0.3-0.9 Eos # 0.01 K/uL 0.0-0.5 Baso # 0.02 K/uL 0.0-0.1 Laboratory test 01/13/2016 [facility] Fibrinogen 445 mg/dL 188-480 41 finding [address] [place] [address] [phone] Differential-WBC 01/13/2016 [facility] Total Cells 100 #CELLS Confirm [address] Counted [place], [place] [id number] [phone] Band% 2 % 0-8 Neutrophils% 89 % High 33-73 Lymph% 6 % Low 17-56 Monocyte% 3 % 0-10 Platelet Estimate MARKED DECREASE Polychromasia 1+ Anisocytosis 2+ Helmet Cells 0-1+ Laboratory test 01/13/2016 [facility] Fibrinogen 416 mg/dL 188-480 42 finding [address] [place] [address] [phone] Protime 01/13/2016 [facility] Protime 13.0 seconds 12.1-14.9 [address] [place], [place] [id number] [phone] Inr 1.0 0.9-1.1 43 Laboratory test 01/13/2016 [facility] Act Partial 24.9 23.9-34.3 44 finding [address] [address] Time [phone] Comprehensive 01/13/2016 [facility] Glucose 180 mg/dL High 74-106 Metabolic Panel [address] [place] [address] [phone] BUN 12 mg/dL 7-18 Creatinine 0.8 mg/dL 0.6-1.3 Glom Filtration Rate, Estimate >60 mL/min >60 If >60 mL/min >60 45 BUN/Creat 15.0 ratio Sodium 137 mmol/L 136-145 Potassium 3.9 mmol/L 3.5-5.1 Chloride 103 mmol/L 98-107 Carbon Dioxide 21 mmol/L 21-32 Anion Gap 13 mEq/L 8-16 Calcium 6.6 mg/dL Low 8.5-10.1 46 Total Protein 5.6 g/dL Low 6.4-8.2 47 Albumin 1.9 g/dL Low 3.4-5.0 Globulin 3.7 g/dL 1.9-4.3 Alb/Glob 0.5 ratio Bilirubin,Total 0.7 mg/dL 0.2-1.0 Sgot/Ast 72 U/L High 15-37 SGPT/Alt 201 U/L High 12-78 Alkaline Phosphatase 158 U/L High 45-117 Laboratory test 01/13/2016 [facility] Magnesium 7.0 mg/dL High 1.8-2.4 [address] [place] [address] [phone] Laboratory test 01/13/2016 [facility] Slide Review DIFF [address] ORDERED [place], [place] [id number] [phone] CBC W/Automated 01/13/2016 [facility] White Blood 21.0 K/uL High 3.1-10.[address] [place] [address] [phone] Red Blood Count 3.07 M/uL Low 3.90-5.40 Hemoglobin 9.2 gm/dL Low 11.6-15.8 Hematocrit 27.2 % Low 36.0-46.1 Mean Cell Volume 88.6 fl 80.9-99.0 Mean Corpuscular HGB 30.0 pg 25.9-32.7 Mean Corpuscular HGB Conc 33.8 g/dL 30.8-34.3 Platelet Count 66 K/uL Low 155-360 50 Red Cell Distri Width SD 51.5 fl High 3-47 Red Cell Distri Width %CV 17.3 % High 11.7-14.4 Neut# 18.45 K/uL High 1.8-7.0 Lymph # 1.83 K/uL 1.8-7.0 [place] # 0.72 K/uL 0.3-0.9 Eos # 0.00 K/uL 0.0-0.5 Baso # 0.01 K/uL 0.0-0.1 Laboratory test 01/12/2016 [facility] Placenta, See Note [address] [place] [address] Trimester [phone] Comprehensive 01/12/2016 [facility] Glucose 141 mg/dL High 74-10 Metabolic Panel [address] [place], [place] [id number] [phone] BUN 11 mg/dL 7-18 Creatinine 0.8 mg/dL 0.6-1.3 Glom Filtration Rate, Estimate >60 mL/min >60 If >60 mL/min >60 52 BUN/Creat 13.7 ratio Sodium 134 mmol/L Low 136-145 Potassium 3.9 mmol/L 3.5-5.1 Chloride 101 mmol/L 98-107 Carbon Dioxide 26 mmol/L 21-32 Anion Gap 7 mEq/L Low 8-16 Calcium 6.9 mg/dL Low 8.5-10.1 Total Protein 6.6 g/dL 6.4-8.2 Albumin 2.2 g/dL Low 3.4-5.0 Globulin 4.4 g/dL High 1.9-4.3 Alb/Glob 0.5 ratio Bilirubin,Total 0.9 mg/dL 0.2-1.0 Sgot/Ast 98 U/L High 15-37 SGPT/Alt 235 U/L High 12-78 Alkaline Phosphatase 178 U/L High 45-117 Laboratory 01/12/2016 [facility] Magnesium 6.7 mg/dL High 1.8-2.4 53 test finding [address] [place] [address] [phone] Drugs Of 01/12/2016 [facility] Amphetamines Negative Abuse-Urine [address] [facility] (Urine) Screen 7 [place] [address] [phone] Barbiturates (Urine) Negative Benzodiazepines (Urine) Negative Cannabinoids (Urine) Negative Cocaine Metabolite (Urine) Negative Methadone (Urine) Negative Opiates (Urine) Negative Urine Cutoffs * 54 Laboratory test 01/12/2016 [facility] Magnesium 5.2 mg/dL High 1.8-2.4 55 finding [address] [place] [address] [phone] CBC W/Automated 01/12/2016 [facility] White Blood 13.7 K/uL High 3.1-10.[address] [place] [address] [phone] Red Blood Count 3.60 M/uL Low 3.90-5.40 Hemoglobin 10.7 gm/dL Low 11.6-15.8 Hematocrit 31.2 % Low 36.0-46.1 Mean Cell Volume 86.7 fl 80.9-99.0 Mean Corpuscular HGB 29.7 pg 25.9-32.7 Mean Corpuscular HGB Conc 34.3 g/dL 30.8-34.3 Platelet Count 33 K/uL Low 155-360 Red Cell Distri Width SD 49.9 fl High 3-47 Red Cell Distri Width %CV 16.8 % High 11.7-14.4 Neut% 86.0 % High 40.4-72.8 Lymph % 11.2 % Low 17.0-46.1 [place] % 2.6 % Low 4.3-13.2 Eo% 0.1 % 0.0-6.6 Bas% 0.1 % 0.0-1.1 Neut# 11.81 K/uL High 1.8-7.0 Lymph # 1.54 K/uL Low 1.8-7.0 [place] # 0.36 K/uL 0.3-0.9 Eos # 0.01 K/uL 0.0-0.5 Baso # 0.01 K/uL 0.0-0.1 Laboratory test finding 01/12/2016 [facility] LDH 1035 U/L High 84-246 [address] [place] [address] [phone] Comprehensive Metabolic 01/12/2016 [facility] Glucose 150 mg/dL High 74-106 Panel [address] [place] [address] [phone] BUN 11 mg/dL 7-18 Creatinine 0.8 mg/dL 0.6-1.3 Glom Filtration Rate, Estimate >60 mL/min >60 If >60 mL/min >60 56 BUN/Creat 13.7 ratio Sodium 134 mmol/L Low 136-145 Potassium 3.6 mmol/L 3.5-5.1 Chloride 102 mmol/L 98-107 Carbon Dioxide 22 mmol/L 21-32 Anion Gap 10 mEq/L 8-16 Calcium 7.6 mg/dL Low 8.5-10.1 Total Protein 6.2 g/dL Low 6.4-8.2 Albumin 2.1 g/dL Low 3.4-5.0 Globulin 4.1 g/dL 1.9-4.3 Alb/Glob 0.5 ratio Bilirubin,Total 1.9 mg/dL High 0.2-1.0 Sgot/Ast 157 U/L High 15-37 SGPT/Alt 254 U/L High 12-78 Alkaline Phosphatase 170 U/L High 45-117 Laboratory test 01/12/2016 [facility] Act Partial 31.7 seconds 23.9-34.3 [address] [place] [address] [phone] Protime 01/12/2016 [facility] Protime 13.5 seconds 12.1-14.[address] [place] [address] [phone] Inr 1.0 0.9-1.1 58 CBC W/Automated 01/12/2016 [facility] White Blood 17.8 K/uL High 3.1-10.[address] [place] [address] [phone] Red Blood Count 3.65 M/uL Low 3.90-5.40 Hemoglobin 11.0 gm/dL Low 11.6-15.8 Hematocrit 32.2 % Low 36.0-46.1 Mean Cell Volume 88.2 fl 80.9-99.0 Mean Corpuscular HGB 30.1 pg 25.9-32.7 Mean Corpuscular HGB Conc 34.2 g/dL 30.8-34.3 Platelet Count 49 K/uL Low 155-360 59 Red Cell Distri Width SD 51.2 fl High 3-47 Red Cell Distri Width %CV 17.7 % High 11.7-14.4 Neut% 82.9 % High 40.4-72.8 60 Lymph % 11.7 % Low 17.0-46.1 [place] % 5.2 % 4.3-13.2 Eo% 0.1 % 0.0-6.6 Bas% 0.1 % 0.0-1.1 Neut# 14.71 K/uL High 1.8-7.0 Lymph # 2.08 K/uL 1.8-7.0 [place] # 0.93 K/uL High 0.3-0.9 Eos # 0.01 K/uL 0.0-0.5 Baso # 0.02 K/uL 0.0-0.1 Protime 01/12/2016 [facility] Protime 13.6 seconds 12.1-14.[address] [place] [address] [phone] Inr 1.0 0.9-1.1 61 Laboratory test 01/12/2016 [facility] Act Partial 27.6 seconds 23.9-34.3 [address] [place] [address] [phone] Fibrinogen 545 mg/dL High 188-480 63 Liver Function Tests 01/12/2016 [facility] Total Protein 6.4 g/dL 6.4-8.2 [address] [place] [address] [phone] Albumin 2.1 g/dL Low 3.4-5.0 Globulin 4.3 g/dL 1.9-4.3 Alb/Glob 0.5 ratio Bilirubin,Total 1.2 mg/dL High 0.2-1.0 Bilirubin,Direct 0.4 mg/dL High 0.0-0.2 Bilirubin,Indirect 0.8 mg/dL 0.0-0.9 Sgot/Ast 103 U/L High 15-37 SGPT/Alt 234 U/L High 12-78 Alkaline Phosphatase 179 U/L High 45-117 Laboratory test 01/12/2016 [facility] LDH 899 U/L High 84-246 finding [address] [place] [address] [phone] CBC W/Automated 01/12/2016 [facility] White Blood 14.7 K/uL High 3.1-10.7 Diff 134 [facility] [place] [address] [phone] Red Blood Count 3.62 M/uL Low 3.90-5.40 Hemoglobin 11.0 gm/dL Low 11.6-15.8 Hematocrit 31.4 % Low 36.0-46.1 Mean Cell Volume 86.7 fl 80.9-99.0 Mean Corpuscular HGB 30.4 pg 25.9-32.7 Mean Corpuscular HGB Conc 35.0 g/dL High 30.8-34.3 Platelet Count 45 K/uL Low 155-360 Red Cell Distri Width SD 49.7 fl High 3-47 Red Cell Distri Width %CV 17.2 % High 11.7-14.4 Neut% 85.3 % High 40.4-72.8 Lymph % 11.7 % Low 17.0-46.1 [place] % 2.9 % Low 4.3-13.2 Eo% 0.0 % 0.0-6.6 Bas% 0.1 % 0.0-1.1 Neut# 12.49 K/uL High 1.8-7.0 Lymph # 1.72 K/uL Low 1.8-7.0 [place] # 0.42 K/uL 0.3-0.9 Eos # 0.00 K/uL 0.0-0.5 Baso # 0.02 K/uL 0.0-0.1 CBC W/Automated 01/12/2016 [facility] White Blood 14.0 K/uL High 3.1-10.[address] [place] [address] [phone] Red Blood Count 3.54 M/uL Low 3.90-5.40 Hemoglobin 10.7 gm/dL Low 11.6-15.8 Hematocrit 30.6 % Low 36.0-46.1 Mean Cell Volume 86.4 fl 80.9-99.0 Mean Corpuscular HGB 30.2 pg 25.9-32.7 Mean Corpuscular HGB Conc 35.0 g/dL High 30.8-34.3 Platelet Count 38 K/uL Low 155-360 Red Cell Distri Width SD 49.5 fl High 3-47 Red Cell Distri Width %CV 17.1 % High 11.7-14.4 Neut% 86.2 % High 40.4-72.8 Lymph % 11.6 % Low 17.0-46.1 [place] % 2.0 % Low 4.3-13.2 Eo% 0.1 % 0.0-6.6 Bas% 0.1 % 0.0-1.1 Neut# 12.08 K/uL High 1.8-7.0 Lymph # 1.62 K/uL Low 1.8-7.0 [place] # 0.28 K/uL Low 0.3-0.9 Eos # 0.01 K/uL 0.0-0.5 Baso # 0.02 K/uL 0.0-0.1 Laboratory test 01/12/2016 [facility] Coag Factor 108 % 75-130 [address] [place] [address] [phone] Comprehensive 01/12/2016 [facility] Glucose 201 High 74-106 Metabolic Panel [address] mg/[place] [address] [phone] BUN 10 mg/dL 7-18 Creatinine 0.8 mg/dL 0.6-1.3 Glom Filtration Rate, Estimate >60 mL/min >60 If >60 mL/min >60 65 BUN/Creat 12.5 ratio Sodium 134 mmol/L Low 136-145 Potassium 3.6 mmol/L 3.5-5.1 Chloride 101 mmol/L 98-107 Carbon Dioxide 20 mmol/L Low 21-32 Anion Gap 13 mEq/L 8-16 Calcium 7.4 mg/dL Low 8.5-10.1 Total Protein 6.4 g/dL 6.4-8.2 Albumin 2.1 g/dL Low 3.4-5.0 Globulin 4.3 g/dL 1.9-4.3 Alb/Glob 0.5 ratio Bilirubin,Total 1.3 mg/dL High 0.2-1.0 Sgot/Ast 115 U/L High 15-37 SGPT/Alt 240 U/L High 12-78 Alkaline Phosphatase 178 U/L High 45-117 Laboratory 01/12/2016 [facility] Magnesium 6.5 mg/dL High 1.8-2.4 66 test finding [address] [place] [address] [phone] Laboratory 01/12/2016 [facility] Act Partial 30.7 23.9-34.3 67 test finding [address] [facility] Thrombo Time seconds [place], [place] [id number] [phone] Fibrinogen 528 mg/dL High 188-480 68 Protime 01/12/2016 [facility] Protime 12.6 seconds 12.1-14.9 [address] [place] [address] [phone] Inr 0.9 0.9-1.1 69 Comprehensive Metabolic 01/11/2016 [facility] Glucose 91 mg/dL 74-106 Panel [address] [place], [place] [address]37 [phone] BUN 11 mg/dL 7-18 Creatinine 0.7 mg/dL 0.6-1.3 Glom Filtration Rate, Estimate >60 mL/min >60 If >60 mL/min >60 70 BUN/Creat 15.7 ratio Sodium 136 mmol/L 136-145 Potassium 3.5 mmol/L 3.5-5.1 Chloride 105 mmol/L 98-107 Carbon Dioxide 22 mmol/L 21-32 Anion Gap 9 mEq/L 8-16 Calcium 7.9 mg/dL Low 8.5-10.1 Total Protein 6.1 g/dL Low 6.4-8.2 Albumin 2.1 g/dL Low 3.4-5.0 Globulin 4.0 g/dL 1.9-4.3 Alb/Glob 0.5 ratio Bilirubin,Total 2.9 mg/dL High 0.2-1.0 Sgot/Ast 203 U/L High 15-37 SGPT/Alt 252 U/L High 12-78 Alkaline Phosphatase 169 U/L High 45-117 Laboratory test 01/11/2016 [facility] Thyroid Stim 4.54 uIU/mL High 0.30-4.[address] Hormone [place], [place] [id number] [phone] Free T4 1.15 ng/dL 0.76-1.46 Glycohemoglobin A1c 01/11/2016 [facility] Glycohemoglobin 5.1 % 4.2-6.[address] (A1c) [place], [place] [id number] [phone] eAG 100 mg/dL Laboratory test 01/11/2016 [facility] Antithrombin III 81 % 75-[address] Activity [place], [place] [address] [phone] Antithrombin III Antigen 66 % Low 75-130 72 Laboratory test 01/11/2016 [facility] Blood Smear See Note [address] Review - [place], [place] [id number] [phone] Differential WBC 01/11/2016 [facility] Total Cells 100 #CELLS Confirm [address] Counted [place], [place] [address] [phone] Band% 4 % 0-8 Neutrophils% 72 % 33-73 Lymph% 10 % Low 17-56 Atypical Lymph% 2 % 0-7 Monocyte% 12 % High 0-10 Platelet Estimate MARKED DECREASE Polychromasia 1+ Anisocytosis 1+ Microcytosis 1+ Schistocytes 0-1+ Helmet Cells 0-1+ Acanthocytes 0-1+ Differential Comment LRG PLTS SEEN 74 Laboratory test 01/11/2016 [facility] Slide Review DIFF ORDERED [address] [place], [place] [address] [phone] CBC W/Automated 01/11/2016 [facility] White Blood 13.3 K/uL High 3.1-[address] Count .7 [place], [place] [address] [phone] Red Blood Count 3.62 M/uL Low 3.90-5.40 Hemoglobin 10.7 gm/dL Low 11.6-15.8 Hematocrit 31.0 % Low 36.0-46.1 Mean Cell Volume 85.6 fl 80.9-99.0 Mean Corpuscular HGB 29.6 pg 25.9-32.7 Mean Corpuscular HGB Conc 34.5 g/dL High 30.8-34.3 Platelet Count 31 K/uL Low 155-360 76 Red Cell Distri Width SD 48.2 fl High 3-47 Red Cell Distri Width %CV 16.6 % High 11.7-14.4 Neut# 10.20 K/uL High 1.8-7.0 Lymph # 1.98 K/uL 1.8-7.0 [place] # 1.07 K/uL High 0.3-0.9 Eos # 0.03 K/uL 0.0-0.5 Baso # 0.03 K/uL 0.0-0.1 Laboratory test 01/11/2016 [facility] [address] 0 [address] [place] [address] [phone] Dic Screen 01/11/2016 [facility] Protime 13.6 seconds 12.1-[address] 4.9 [place] [address] [phone] Inr 1.0 0.9-1.1 78 Act Partial Thrombo Time 36.4 seconds High 23.9-34.3 Fibrinogen 580 mg/dL High 188-480 D-Dimer, Quantitative > 20.00 ug/mL High 79 Lupus Anticoagulant Reflex 01/11/2016 [facility] PTT-LA 44.5 sec 0.0-50.[address] [place] [address] [phone] DRVVT 37.1 sec 0.0-55.1 Note: Comment: . 80 Laboratory test 01/11/2016 [facility] Antinuclear Negative . [address] Antibodies, [place] [address] [phone] Anti-Dna Antibody ([place]) <1 IU/mL 0-9 82 Coxsackie B AB 01/11/2016 [facility] Coxsackie Type Negative Neg:<1:8 (1-6) By Neut [address] [place] [place] [address] [phone] Coxsackie Type B2 1:8 High Neg:<1:8 [place] Type B3 Negative Neg:<1:8 [place] Type B4 Negative Neg:<1:8 [place] Type B5 1:8 High Neg:<1:8 [place] Type B6 Negative Neg:<1:8 Torch Igg/Igm 01/11/2016 [facility] HSV II,Igg,Type <0.91 0.00-0.[address] [place] [place] [address] [phone] HSV IgM I/II Combination 1.01 Ratio High 0.00-0.90 84 HSV Type I Specific Igg 52.00 index High 0.00-0.90 85 Toxoplasma IgG Antibody <3.0 IU/mL 0.0-7.1 86 Toxoplasma IgM Antibody <3.0 AU/mL 0.0-7.9 87 Comment: See Note 88 Cytomegalovirus (CMV) Ab, IgG <0.60 U/mL 0.00-0.59 89 Cytomegalovirus IgM AB <30.0 AU/mL 0.0-29.9 90 Rubella Antibodies,Igg 1.69 Immune>0.99in 91 Rubella Antibodies,Igm <20.0 AU/mL 0.0-19.9 92 Parvovirus 01/11/2016 [facility] Parvovirus B19 3.4 index High 0.0-0.8 93 B19,Human [address] Igg Igg/[place] [address] [phone] Parvovirus B19 Igm 0.2 index 0.0-0.8 94 Laboratory test 01/11/2016 [facility] Thyroglobulin < 1.0 0.0-0.[address] Antibody IU/[place] [address] [phone] Laboratory test 01/11/2016 [facility] Kletonyauer Saleem See Note [address] [place] [address] [phone] Type And Screen 01/11/2016 [facility] Patient Blood Type O POS [address] [place] [address] [phone] Antibody Screen Negative Negative Laboratory test 01/11/2016 [facility] Treponema Antibody Nonreactive 97 finding [address] [facility] [place] [address] [phone] Anticardiolipin AB 01/11/2016 [facility] Anticardiolipin < 9 GPLU/mL 0- 98 Iga/Igg/Igm [address] Igg 14 [place], [place] [address] [phone] Anticardiolipin Igm, Quant < 9 MPLU/mL 0-12 99 Anticardiolipin Iga < 9 APLU/mL 0-11 100 Factor V Leiden 01/11/2016 [facility] Factor V Leiden See Note 101 Mutation [address] [place], [place] [address] [phone] . See Note 102 HGB Electrophoresis 01/11/2016 [facility] Hgb A 97.9 % 94.0-98.0 [address] [place], [place] [address] [phone] Hgb, 0.0 % 0.0-2.0 Hgb S 0.0 % 0.0 Hgb C 0.0 % 0.0 Hgb A2 2.1 % 0.7-3.1 Interpretation: See Note 103 Laboratory test 09/01/2015 N2N/CCD Import Alanine Aminotransferase 36 12 -78 finding (Alt/SGPT) Albumin 3.1 Low 3.4-5.0 Albumin/Globulin Ratio 0.8 Alkaline Phosphatase 113 45-117 Anion Gap 7 Low 8-16 Aspartate Amino Transf (Ast/Sgot) 13 Low 15-37 BUN/Creatinine Ratio 13.3 Basophils # (Auto) 0.01 0.0-0.1 Basophils (%) (Auto) 0.1 0.0-1.1 Blood Urea Nitrogen 8 7-18 Calcium Level 8.4 Low 8.5-10.1 Carbon Dioxide Level 24 21-32 Chloride Level 105 98-107 Creatinine 0.6 0.6-1.3 Eosinophils # (Auto) 0.07 0.0-0.5 Eosinophils (%) (Auto) 0.8 0.0-6.6 Free Thyroxine 1.08 0.76-1.46 Globulin 4.1 1.9-4.3 Glucose Screen 101 74-106 Hematocrit 37.0 36.0-46.1 Hemoglobin 12.4 11.6-15.8 Hepatitis B Surface Antigen Nonreactive Nonreactive Lymphocytes # (Auto) 2.17 1.8-7.0 Lymphocytes (%) (Auto) 24.7 17.0-46.1 Mean Corpuscular Hemoglobin 27.6 25.9-32.7 Mean Corpuscular Hemoglobin Concent 33.5 30.8-34.3 Mean Corpuscular Volume 82.2 80.9-99.0 Mean Platelet Volume 10.9 8.9-12.4 Monocytes # (Auto) 0.60 0.3-0.9 Monocytes (%) (Auto) 6.8 4.3-13.2 Neutrophils # (Auto) 5.94 1.0-7.0 Neutrophils (%) (Auto) 67.6 40.4-72.8 Platelet Count 285 155-360 Potassium Level 3.7 3.5-5.1 RDW Coefficient of Variation 15.2 High 11.7-14.4 Red Blood Count 4.50 3.90-5.40 Red Cell Distribution Width 45.0 3-47 Rubella IgG Antibody Reactive Reactive Sodium Level 136 136-145 Thyroid Stimulating Hormone (TSH) 2.89 0.36-3.74 Total Bilirubin 0.2 0.2-1.0 Total Protein 7.2 6.4-8.2 Uric Acid 3.5 2.6-6.0 White Blood Count 8.8 3.1-10.7 Ua RFX Micro + 07/31/2015 [facility] Urine Color DK YELLOW Yellow Culture II [address] [place] [address] [phone] Urine Clarity CLEAR Clear Urine Glucose - Dipstick NEGATIVE mg/dL Negative Urine Bilirubin - Dipstick NEGATIVE Negative Urine Ketone TRACE mg/dL High Negative Urine Specific Rock 1.015 1.010-1.030 Urine Blood NEGATIVE Negative Urine PH 6.0 Low 6.5-7.5 Urine Protein - Dipstick NEGATIVE mg/dL Negative Urine Urobilinogen - Dipstick >=8.0 E.U./dL High 0.2-1.0 Urine Nitrite - Dipstick NEGATIVE Negative Urine Leuk Esterase NEGATIVE Negative Laboratory test 07/31/2015 [facility] Urine Culture See Note 104 finding [address] [place] [address] [phone] Laboratory test 07/31/2015 N2N/CCD Import Urine Negative Negative finding Bilirubin Urine Glucose (Ua) Negative Negative Urine Ketones Trace High Negative Urine Leukocyte Esterase Negative Negative Urine Nitrite Negative Negative Urine Protein Negative Negative Laboratory test 06/15/2015 [facility] Potassium 3.3 mmol/L Low 3.5-5.1 finding [address] [facility] [place] [address] [phone] Basic Metabolic 05/13/2015 [facility] Glucose 109 mg/dL High 74-106 Panel [address] [facility] [place] [address] [phone] BUN 14 mg/dL 7-18 Creatinine 0.9 mg/dL 0.6-1.3 Glom Filtration Rate, Estimate >60 mL/min >60 If >60 mL/min >60 105 BUN/Creat 15.5 ratio Sodium 139 mmol/L 136-145 Potassium 3.2 mmol/L Low 3.5-5.1 Chloride 104 mmol/L 98-107 Carbon Dioxide 27 mmol/L 21-32 Anion Gap 8 mEq/L 8-16 Calcium 8.7 mg/dL 8.5-10.1 CBS W/Automated Diff 05/13/2015 [facility] White Blood 7.9 K/uL 3.1-10.7 [address] [place] [address] [phone] Red Blood Count 4.50 M/uL 3.90-5.40 Hemoglobin 12.6 gm/dL 11.6-15.8 Hematocrit 37.3 % 36.0-46.1 Mean Cell Volume 82.9 fl 80.9-99.0 Mean Corpuscular HGB 28.0 pg 25.9-32.7 Mean Corpuscular HGB Conc 33.8 g/dL 30.8-34.3 Platelet Count 331 K/uL 155-360 Red Cell Distri Width SD 43.4 fl 3-47 Red Cell Distri Width %CV 14.5 % High 11.7-14.4 Mean Platelet Volume 11.0 fL 8.9-12.4 Neut% 57.6 % 40.4-72.8 Lymph % 35.5 % 17.0-46.1 [place] % 5.6 % 4.3-13.2 Eo% 1.0 % 0.0-6.6 Bas% 0.3 % 0.0-1.1 Neut# 4.54 K/uL 1.0-7.0 Lymph # 2.79 K/uL 1.8-7.0 [place] # 0.44 K/uL 0.3-0.9 Eos # 0.08 K/uL 0.0-0.5 Baso # 0.02 K/uL 0.0-0.1 Glycohemoglobin A1c 05/13/2015 [facility] Glycohemoglobin 5.8 % 4.2-6.[address] (A1c) [place] [address] [phone] eAG 120 mg/dL Laboratory test 05/13/2015 [facility] Thyroid Stim 2.82 uIU/mL 0.36-3.[address] [place] [address] [phone] Laboratory test 05/13/2015 N2N/CCD Import Basophils # 0.02 0.0-0.1 finding (Auto) Basophils (%) (Auto) 0.3 0.0-1.1 Eosinophils # (Auto) 0.08 0.0-0.5 Eosinophils (%) (Auto) 1.0 0.0-6.6 Estimated Average Glucose (eAG) 120 Hemoglobin A1c 5.8 4.2-6.3 Lymphocytes # (Auto) 2.79 1.8-7.0 Lymphocytes (%) (Auto) 35.5 17.0-46.1 Monocytes # (Auto) 0.44 0.3-0.9 Monocytes (%) (Auto) 5.6 4.3-13.2 Neutrophils # (Auto) 4.54 1.0-7.0 Neutrophils (%) (Auto) 57.6 40.4-72.8 RDW Coefficient of Variation 14.5 High 11.7-14.4 Red Cell Distribution Width 43.4 3-47 Sodium Level 139 136-145 Laboratory test 05/29/2014 N2N/CCD Import Urine HCG Negative Negative 107 finding (Qualitative) Urine Screen 05/29/2014 N2N/CCD Import Urine Bilirubin - Negative Negative Dipstick Urine Blood Negative Negative Urine Clarity SL Cloudy Clear Urine Color Yellow Yellow Urine Glucose - Dipstick Negative mg/dL Negative Urine Ketone Negative mg/dL Negative Urine Leuk Esterase Negative Negative Urine Nitrite - Dipstick Negative Negative Urine PH 6.0 Low 6.5-7.5 Urine Protein - Dipstick Negative mg/dL Negative Urine Specific Rock >=1.030 1.010-1.030 Urine Urobilinogen - Dipstick 1.0 E.U./dL 0.2-1.0 GC/Chlamydia 05/24/2014 N2N/CCD Import GC/Chlamydia Rna (See Note) 108 Amplified Rna Affirm Vaginal Dna 05/24/2014 N2N/CCD Import Affirm Vaginal Dna (See Note) 109 Probe Probe Urine Culture And 05/24/2014 N2N/CCD Import Urine Culture (See Note) 110 Sensitivities Basic Metabolic 03/05/2014 N2N/CCD Import Anion Gap 8 mEq/L 8-16 Panel BUN 17 mg/dL 5-23 BUN/Creat 24.2 ratio Calcium 9.1 mg/dL 8.5-10.1 Carbon Dioxide 27 mEq/L 18-29 Chloride 107 mmol/L 98-107 Creatinine 0.7 mg/dL 0.5-1.4 Glom Filtration Rate, Estimate >60 mL/min >60 Glucose 84 mg/dL 76-115 If >60 mL/min >60 111 Potassium 3.8 mmol/L 3.5-5.1 Sodium 138 mmol/L 136-145 Glycohemoglobin A1c 03/05/2014 N2N/CCD Import Glycohemoglobin (A1c) 5.9 % 4.8-6.0 112 eAG 123 mg/dL Laboratory test 07/10/2013 N2N/CCD Import Urine HCG Negative Negative 113 finding (Qualitative) Laboratory test 07/10/2013 N2N/CCD Import Endometrial See Note 114 finding Curettage Laboratory test 06/13/2013 N2N/CCD Import Endometrial Biopsy See Note 115 finding Laboratory test 05/23/2013 N2N/CCD Import HPV High Risk Negative Negative 116 finding ThinPrep Pap: Cervix/Endocx See Note 117 Urine Culture And 01/23/2013 N2N/CCD Import Urine Culture (See Note) 118 Sensitivities Laboratory test 01/23/2013 N2N/CCD Import Chlamydia (See Note) 119 finding Trachomatis Rna GC (N. gonorrhoeae) Rna (See Note) 120 Affirm Vaginal Dna 01/23/2013 N2N/CCD Import Affirm Vaginal (See Note) 121 Probe Dna Probe Laboratory test 12/13/2012 N2N/CCD Import Creatine Kinase 46 U/L 0-200 finding Hemoglobin A1c 5.0 % Less than 6.0 122 Lipid Profile 12/13/2012 N2N/CCD Import Cholesterol 124 mg/dL Less than (Trig/Chol/HDL) 200 Cholesterol/HDL Ratio 3.4 Average 1-4.44 HDL Cholesterol 37 mg/dL Low 40-60 123 LDL Cholesterol 72.4 mg/dL Less Than 100 124 Triglycerides 73 mg/dL 40-200 Liver Function Panel 12/13/2012 N2N/CCD Import Albumin 4.2 g/dL 3.6-5.4 Albumin/Globulin Ratio 1.7 1-3 Alkaline Phosphatase 66 U/L 30-110 Alt 13 U/L Low 14-54 Ast 15 U/L 12-42 Direct Bilirubin 0.2 mg/dL 0.1-0.5 Globulin 2.5 g/dL 2-4 Indirect Bilirubin 0.8 mg/dL 0.3-1.0 Total Bilirubin 1.0 mg/dL 0.4-1.5 Total Protein 6.7 g/dL 6.2-8.1 Throat-Beta Strept 09/25/2012 N2N/CCD Import Throat Beta (See Note) 125 Strep Culture Renal Function 08/15/2012 N2N/CCD Import Albumin 4.1 GM/DL 3.6-5.4 Panel Anion Gap 7.0 mmol/L 2-11 BUN/Creatinine Ratio 14.3 8-20 Blood Urea Nitrogen 10 mg/dL 6-24 Calcium 9.6 mg/dL 8.1-9.9 Chloride 100 mmol/L Low 101-111 Co2 Carbon Dioxide 27.0 mmol/L 22-32 Creatinine 0.70 mg/dL 0.50-1.40 Egfr 123.2 >60 126 Egfr Non- 95.8 >60 Glucose 91 mg/dL 70-100 Phosphorus 3.5 mg/dL 2.4-4.7 Potassium 4.4 mmol/L 3.5-5.0 Sodium 134 mmol/L 133-145 Laboratory test 08/15/2012 N2N/CCD Import Hemoglobin A1c 5.6 % Less than 127 finding 6.0 Lipid Profile 08/15/2012 N2N/CCD Import Cholesterol 200 mg/dL Less than (Trig/Chol/HDL) 200 Cholesterol/HDL Ratio 5.1 AVERAGE High 1-4.44 HDL Cholesterol 39 mg/dL Low 40-60 128 LDL Cholesterol 141.4 mg/dL High Less Than 100 129 Triglycerides 98 mg/dL 40-200 Liver Function Panel 08/15/2012 N2N/CCD Import Albumin/Globulin Ratio 1.6 1-3 Alkaline Phosphatase 87 U/L 30-110 Alt 25 U/L 14-54 Ast 21 U/L 12-42 Direct Bilirubin 0.1 mg/dL 0.1-0.5 Globulin 2.5 GM/DL 2-4 Indirect Bilirubin 0.8 mg/dL 0.3-1.0 Total Bilirubin 0.9 mg/dL 0.4-1.5 Total Protein 6.6 GM/DL 6.2-8.1 Laboratory test 07/02/2012 N2N/CCD Import Surgical See Note 130 finding Pathology Urine Culture & 05/03/2012 N2N/CCD Import M 131 Sensitivi ------ <See Note> Laboratory test 03/06/2012 N2N/CCD Import Hemoglobin A1c 5.8 % Less Than 132 finding 6.0 Basic Metabolic 03/06/2012 N2N/CCD Import Anion Gap 3.0 mmol/L 2-11 133 Panel BUN 9 mg/dL 6-24 BUN/Creatinine Ratio 12.9 8-20 Calcium 9.0 mg/dL 8.1-9.9 Chloride 106 mmol/L 101-111 Co2 (Carbon Dioxide) 25.0 mmol/L 22-32 Creatinine 0.7 mg/dL 0.50-1.40 Glucose 105 mg/dL High 70-100 One Over Creatinine 1.42 Potassium 3.9 mmol/L 3.5-5.0 Sodium 134 mmol/L Low 135-145 eGFR 123.2 > 60 134 eGFR Non- 95.8 > 60 Laboratory test 12/01/2011 N2N/CCD Import Hemoglobin A1c 5.6 % Less Than 135 finding 6.0 Basic Metabolic 12/01/2011 N2N/CCD Import Anion Gap 6.0 mmol/L 2-11 136 Panel BUN 12 mg/dL 6-24 BUN/Creatinine Ratio 15.0 8-20 Calcium 8.6 mg/dL 8.1-9.9 Chloride 105 mmol/L 101-111 Co2 (Carbon Dioxide) 26.0 mmol/L 22-32 Creatinine 0.8 mg/dL 0.50-1.40 Glucose 84 mg/dL 70-100 One Over Creatinine 1.25 Potassium 4.2 mmol/L 3.5-5.0 Sodium 137 mmol/L 135-145 eGFR 105.6 > 60 137 eGFR Non- 82.1 > 60 Lipid Profile 12/01/2011 N2N/CCD Import Cholesterol 170 mg/dL Less Than 138 (Trig/Chol/HDL) 200 Cholesterol/HDL Ratio 4.05 AVERAGE 1-4.44 High Density Lipoprotein 42 mg/dL 40-60 139 Low Density Lipoprotein 115 mg/dL High Less Than 100 140 Triglyceride 66 mg/dL 40-200 Liver Function Panel 12/01/2011 N2N/CCD Import Albumin 4.0 GM/DL 3.6- 5.4 Albumin/Globulin Ratio 1.5 1-3 Alkaline Phosphatase 82 U/L 30-110 Alt (SGPT) 13 U/L Low 14-54 Ast (Sgot) 15 U/L 12-42 Bilirubin Direct 0.1 mg/dL 0.1-0.5 Bilirubin Total 0.8 mg/dL 0.4-1.5 141 Globulin 2.7 GM/DL 2-4 Indirect Bilirubin 0.7 mg/dL 0.3-1.0 142 Total Protein 6.7 GM/DL 6.2-8.1 1 Police Matron: [id number] R82.90 E78.5 3 Elevated levels of HbA1c suggest the need for more aggressive treatment of glycemia. The [place] [employer] recommends that a primary goal of therapy should be a HbA1c of <7% and that physicians should re-evaluate the treatment regimen in patients with HbA1c values consistently >8%. 4 Note: Persistent reduction for 3 months or more in an eGFR <60 mL/min/1.73 m2 defines CKD. Patients with eGFR values >/=60 mL/min/1.73 m2 may also have CKD if evidence of persistent proteinuria is present. The original MDRD equation for estimated GFR is not valid for patients less than 18 years of age. Additional information may be found at www.kdoqi.org. 5 Reference Guidelines*: Desirable: ........... < 200 mg/dL Borderline High: ..... 200-239 mg/dL High: ................ >=240 mg/dL * The National Cholesterol Education Program (NCEP) 6 Reference Guidelines*: Normal: ............. < 150 mg/dL Borderline High: .... 150-199 mg/dL High: ............... 200-499 mg/dL Very High: .......... > 500 mg/dL * Source: National Cholesterol Education Program (NCEP) 7 Reference Guidelines*: Low HDL: ..... < 40 mg/dL Normal: ..... 40-60 mg/dL Desirable: ... > 60 mg/dL *The National Cholesterol Education Program(NCEP) 8 Reference Guidelines*: Optimal:........... <100 mg/dL Near Optimal....... 100-129 mg/dL Borderline High.... 130-159 mg/dL High............... 160-189 mg/dL Very High.......... >=190 mg/dL * Source: National Cholesterol Education Program (NCEP) 9 Values below the stated reference ranges of AST and ALT can be seen in normal populations. Clinical correlation is suggested. 10 MIXED URETHRAL AMADOU 11 > 100,000 CFU/mL 12 POSS UTI 13 FIRST MORNING SPECIMENS GENERALLY CONTAIN THE HIGHEST CONCENTRATION OF HCG AND ARE RECOMMENDED FOR EARLY DETECTION OF . Method: Quidel QuickVue One-Step Immunoassay 14 URINE, CLEAN CATCH 15 POSSIBLE UROGENITAL CONTAMINATION. 16 URINE, CLEAN CATCH 17 CULTURE TO FOLLOW 18 URINE, CLEAN CATCH 19 > 100,000 CFU/mL 20 Police Matron: [id number] 21 I10 22 Note: Persistent reduction for 3 months or more in an eGFR <60 mL/min/1.73 m2 defines CKD. Patients with eGFR values >/=60 mL/min/1.73 m2 may also have CKD if evidence of persistent proteinuria is present. The original MDRD equation for estimated GFR is not valid for patients less than 18 years of age. Additional information may be found at www.kdoqi.org. 23 R10.2 24 URINE, CLEAN CATCH 25 > 100,000 CFU/mL 26 [id number] 27 SEE RESULT BELOW Name: TANJA LARES : [address]: Emir Beal MD Acct: [id number] Unit: [id number] AGE: 41 Location: [facility] Re02/08/17 SEX: F Status: DEP ER SPEC: [id number] KELLY: 02/08/17-12[address] [facility] [address]: Emir Beal MD REQ: [id number] RECD: 02/08/17 STATUS: ISMAEL OG DR: Keyla JARRETT _ SOURCE: URINE SPDESC: ORDERED: Urine Culture COMMENTS: [id number] Procedure Result Reported Site Urine Culture Final 02/10/17- 09 ML No growth of clinically significant organisms * ML - MAIN LAB ([facility]) . END OF REPORT * ML=Testing performed at Main Lab DEPARTMENT OF PATHOLOGY, [address] [place] [address] Kavon Levin M.D. Director [facility] # [id number] 28 UTI? 29 Note: Persistent reduction for 3 months or more in an eGFR <60 mL/min/1.73 m2 defines CKD. Patients with eGFR values >/=60 mL/min/1.73 m2 may also have CKD if evidence of persistent proteinuria is present. The original MDRD equation for estimated GFR is not valid for patients less than 18 years of age. Additional information may be found at www.kdoqi.org. 30 Values below the stated reference ranges of AST and ALT can be seen in normal populations. Clinical correlation is suggested. 31 A negative result for either C. trachomatis and/or N. gonorrhoeae does not preclued an infection because results are dependent on adequate specimen collection, absence of inhibitors, and sufficient DNA to be detected. 32 FIRST MORNING SPECIMENS GENERALLY CONTAIN THE HIGHEST CONCENTRATION OF HCG AND ARE RECOMMENDED FOR EARLY DETECTION OF . 33 URINE, CLEAN CATCH 34 URINE, CLEAN CATCH 35 Result confirmed by repeat analysis. 36 Instrument flagged sample for slide review. Less than 10% Bands seen, no other immature WBC's seen. RBC morphology essentially normal. Platelet estimate=MODERATE DECREASE 37 Note: Persistent reduction for 3 months or more in an eGFR <60 mL/min/1.73 m2 defines CKD. Patients with eGFR values >/=60 mL/min/1.73 m2 may also have CKD if evidence of persistent proteinuria is present. The original MDRD equation for estimated GFR is not valid for patients less than 18 years of age. Additional information may be found at [email or web address]. 38 CHECKED + CALLED MG TO ELYSE Vincent AT 1128 01/13/16 by LAB.DWM 39 Note: Persistent reduction for 3 months or more in an eGFR <60 mL/min/1.73 m2 defines CKD. Patients with eGFR values >/=60 mL/min/1.73 m2 may also have CKD if evidence of persistent proteinuria is present. The original MDRD equation for estimated GFR is not valid for patients less than 18 years of age. Additional information may be found at www.[email or web address]. 40 CHECKED + CALLED ONI TO ELYSE Vincent AT 1140 01/13/16 by LAB.DWM 41 Is patient on heparin protocol? N 42 Is patient on heparin protocol? N Is patient on anticoagulants? None 43 THERAPEUTIC INR RANGE: 2.0 - 3.0 DVT, Pulmonary embolus, prophylaxis against venous thrombosis or systemic embolization in high risk patients. 2.5 - 3.5 Mechanical heart valves 44 Is patient on heparin protocol? N Is patient on anticoagulants? None QUERY: Anticoagulant Therapy? QUERY: Date of Last Dose: QUERY: Time of Last Dose: 45 Note: Persistent reduction for 3 months or more in an eGFR <60 mL/min/1.73 m2 defines CKD. Patients with eGFR values >/=60 mL/min/1.73 m2 may also have CKD if evidence of persistent proteinuria is present. The original MDRD equation for estimated GFR is not valid for patients less than 18 years of age. Additional information may be found at [email or web address]. 46 Result confirmed by repeat analysis. 47 Result confirmed by repeat analysis. 48 Result confirmed by repeat analysis. 49 Is patient on heparin protocol? N 50 Result confirmed by repeat analysis. NO PLT CLUMPS SEEN ON SCAN OF PERIPHERAL SMEAR 51 DIAGNOSIS: "LATE SECOND TRIMESTER/EARLY THIRD TRIMESTER PLACENTA (308 GRAMS), DELIVERY": - THREE VESSEL UMBILICAL CORD WITH NO EVIDENCE OF ACUTE FUNISITIS AND NO EVIDENCE OF TRUE OR FALSE KNOTS. - MEMBRANES WITH NO EVIDENCE OF ACUTE CHORIOAMNIONITIS. - PLACENTAL DISC WITH IMMATURE CHORIONIC VILLI AND CHORIONIC FIBRIN DEPOSITION. DIAGNOSIS: (Continued) - SEE COMMENT. EP/clf 1052 INTERPRETATION COMMENT The clinical history of intrauterine demise and maternal HELLP syndrome is noted. The histologic findings suggest some degree of retroplacental hemorrhage with placental insufficiency. Clinical-pathologic correlation is recommended. GROSS Received in formalin in a properly labeled container with the patient's name and accession number designated, "PLACENTA (308 GRAMS). The specimen consists of a placenta with attached umbilical cord and membranes. The placental disc measures 12.5 x up to 11.0 x up to 1.8 cm. The umbilical cord is eccentrically inserted 3.0 cm. from the margin and measures 19.5 x up to 1.3 cm. and demonstrates three vessels on cut section. The umbilical cord has a weber-donato dusky appearance with clotted blood in the vessels. Vascular pattern radiates from the umbilical cord and is grossly unremarkable. The surface demonstrates a weber-donato discoloration. The membranes are thin and translucent with focal areas of weber opacification. The maternal surface demonstrates unremarkable pink parenchyma. Printing Roller Polisher sections in A and B. DS/clf PRE OPERATIVE DIAGNOSIS stillborn REVIEW CODE CODE: I Signed Electronically signed Deven CEE MD [id number] 52 Note: Persistent reduction for 3 months or more in an eGFR <60 mL/min/1.73 m2 defines CKD. Patients with eGFR values >/=60 mL/min/1.73 m2 may also have CKD if evidence of persistent proteinuria is present. The original MDRD equation for estimated GFR is not valid for patients less than 18 years of age. Additional information may be found at [email or web address]. 53 Result confirmed by repeat analysis. mg/dL 54 URINE SPECIMENS ARE SCREENED AT THE LISTED CUTOFFS DRUG CLASS INITIAL TEST LEVEL Amphetamines 1000 ng/mL Barbiturates 200 ng/mL Benzodiazepines 200 ng/mL Cannabinoids 50 ng/mL Cocaine Metabolite 300 ng/mL Methadone 300 ng/mL Opiates 300 ng/mL Any POSITIVE findings are UNCONFIRMED. Confirmatory testing is suggested if findings are unexpected. Please contact laboratory if confirmatory testing is desired. SPECIMENS ARE HELD FOR 72 HOURS. 55 Result confirmed by repeat analysis. 56 Note: Persistent reduction for 3 months or more in an eGFR <60 mL/min/1.73 m2 defines CKD. Patients with eGFR values >/=60 mL/min/1.73 m2 may also have CKD if evidence of persistent proteinuria is present. The original MDRD equation for estimated GFR is not valid for patients less than 18 years of age. Additional information may be found at [email or web address]. 57 Is patient on heparin protocol? N QUERY: Anticoagulant Therapy? QUERY: Date of Last Dose: QUERY: Time of Last Dose: 58 THERAPEUTIC INR RANGE: 2.0 - 3.0 DVT, Pulmonary embolus, prophylaxis against venous thrombosis or systemic embolization in high risk patients. 2.5 - 3.5 Mechanical heart valves 59 CHECKED,PLT EST. AGREES WITH INSTRUMENT VALUE. 60 Results confirmed by repeat analysis. 61 THERAPEUTIC INR RANGE: 2.0 - 3.0 DVT, Pulmonary embolus, prophylaxis against venous thrombosis or systemic embolization in high risk patients. 2.5 - 3.5 Mechanical heart valves 62 Is patient on heparin protocol? N QUERY: Anticoagulant Therapy? QUERY: Date of Last Dose: QUERY: Time of Last Dose: 63 Is patient on heparin protocol? N 64 Performed at: [address] [id number] Spray Stainer: Donald Morris MD, Phone: [phone] 65 Note: Persistent reduction for 3 months or more in an eGFR <60 mL/min/1.73 m2 defines CKD. Patients with eGFR values >/=60 mL/min/1.73 m2 may also have CKD if evidence of persistent proteinuria is present. The original MDRD equation for estimated GFR is not valid for patients less than 18 years of age. Additional information may be found at [email or web address]. 66 Result confirmed by repeat analysis. 67 Is patient on heparin protocol? N Is patient on anticoagulants? Unknown Is patient on anticoagulants? None QUERY: Anticoagulant Therapy? QUERY: Date of Last Dose: QUERY: Time of Last Dose: 68 Is patient on heparin protocol? N Is patient on anticoagulants? None 69 THERAPEUTIC INR RANGE: 2.0 - 3.0 DVT, Pulmonary embolus, prophylaxis against venous thrombosis or systemic embolization in high risk patients. 2.5 - 3.5 Mechanical heart valves 70 Note: Persistent reduction for 3 months or more in an eGFR <60 mL/min/1.73 m2 defines CKD. Patients with eGFR values >/=60 mL/min/1.73 m2 may also have CKD if evidence of persistent proteinuria is present. The original MDRD equation for estimated GFR is not valid for patients less than 18 years of age. Additional information may be found at www.[email or web address]. 71 Elevated levels of HbA1c suggest the need for more aggressive treatment of glycemia. The [place] [employer] recommends that a primary goal of therapy should be a HbA1c of <7% and that physicians should re-evaluate the treatment regimen in patients with HbA1c values consistently >8%. 72 A deficiency of antithrombin (AT), either congenital or acquired, increases the risk of thromboembolism. Congenital deficiencies of AT are very rare; acquired AT deficiency is much more common. Heparin therapy will lower AT levels. Levels are diminished in patients with disseminated intravascular coagulation (DIC) or sepsis and can be transiently diminished after an acute thrombotic event or AT deficiency can occur due to diminished synthesis in patients with malnutrition and severe liver disease and urinary loss in nephrotic syndrome. Inflammatory bowel disease and drug therapy with L-asparaginse or fluorouracil can also produce diminished AT levels. It has been suggested that repeat blood sampling and testing after ruling out acquired causes of deficiency should be performed before the patient is diagnosed with congenital AT deficiency. 73 DIAGNOSIS: "PERIPHERAL SMEAR, REVIEW": - LEUKOCYTOSIS WITH ABSOLUTE NEUTROPHILIA, FAVOR REACTIVE. - NORMOCYTIC ANEMIA WITH NORMAL RED CELL MORPHOLOGY. - NO EVIDENCE OF SCHISTOCYTES OR MICROANGIOPATHIC RESPONSE. - MARKED THROMBOCYTOPENIA WITH NO EVIDENCE OF PLATELET CLUMPING OR SATELLITOSIS. - THE FINDINGS WERE DISCUSSED WITH DR. TALLEY. EP/clf 1440 GROSS REC'D 1 PREPARED SMEAR FOR PATH REVIEW. [facility] REVIEW CODE CODE: I Signed Electronically signed Deven CEE MD [id number] 74 RARE NRBC SEEN ON SCAN OF PERIPHERAL SMEAR FEW SMUDGE CELLS SEEN ON SCAN OF PERIPHERAL SMEAR 75 CBC REPORT AND PERIPHERAL SMEAR SUBMITTED FOR PATHOLOGIST'S REVIEW PER PROTOCOL FOR ANY SCHISTOCYTES PRESENT. 76 NO PLT CLUMPS SEEN ON SCAN OF PERIPHERAL SMEAR Result confirmed by repeat analysis. 77 Testing Performed by: [place] [address] NO CELLS DETECTED IN MATERNAL CIRCULATION 78 THERAPEUTIC INR RANGE: 2.0 - 3.0 DVT, Pulmonary embolus, prophylaxis against venous thrombosis or systemic embolization in high risk patients. 2.5 - 3.5 Mechanical heart valves 79 <=0.49 ug/mL - Low likelihood of DIC, DVT or Pulmonary Embolism >0.49 ug/mL - Additional testing should be done to rule out DIC, DVT, or Pulmonary embolism as clinically indicated. ([facility] has established a 97.89% negative predictive value for thrombotic disease when a cutoff value of 0.5 ug/mL is used.) 80 No lupus anticoagulant was detected. 81 Negative <1:80 Borderline 1:80 Positive >1:80 82 Negative <5 Equivocal 5 - 9 Positive >9 83 Negative <0.91 Equivocal 0.91 - 1.09 Positive >1.09 Note: Negative indicates no antibodies detected to HSV-2. Equivocal may suggest early infection. If clinically appropriate, retest at later date. Positive indicates antibodies detected to HSV-2. 84 Negative <0.91 Equivocal 0.91 - 1.09 Positive >1.09 85 Negative <0.91 Equivocal 0.91 - 1.09 Positive >1.09 Note: Negative indicates no antibodies detected to HSV-1. Equivocal may suggest early infection. If clinically appropriate, retest at later date. Positive indicates antibodies detected to HSV-1. 86 Negative <7.2 Equivocal 7.2 - 8.7 Positive >8.7 87 Negative <8.0 Equivocal 8.0 - 9.9 Positive >9.9 88 No serological evidence of infection with Toxoplasma. If symptoms persist, submit a new specimen after three weeks. 89 Negative <0.60 Equivocal 0.60 - 0.69 Positive >0.69 90 Negative <30.0 Equivocal 30.0 - 34.9 Positive >34.9 A positive result is generally indicative of acute infection, reactivation or persistent IgM production. 91 Non-immune <0.90 Equivocal 0.90 - 0.99 Immune >0.99 92 Negative <20.0 Equivocal 20.0 - 24.9 Positive >24.9 Performed at: [facility] [address] [id number] Spray Stainer: Sangeeta Weiner MD, Phone: [phone] Performed at: [facility] [employer] [id number] Spray Stainer: Donald Morris MD, Phone: [phone] 93 Negative <0.9 Equivocal 0.9 - 1.1 Positive >1.1 94 Negative <0.9 Equivocal 0.9 - 1.1 Positive >1.1 95 Thyroglobulin Antibody measured by [employer] 96 [phone] 01/11/16 LAB.RAP PUT ON SEPARATE REQ 97 Please Note: A nonreactive test result does not exclude the possibility of exposure to, or infection with syphilis. T. pallidum antibodies may be undetectable in some stages of the infection and in some clinical conditions. 98 Negative: <15 Indeterminate: 15 - 20 Low-Med Positive: >20 - 80 High Positive: >80 99 Negative: <13 Indeterminate: 13 - 20 Low-Med Positive: >20 - 80 High Positive: >80 100 Negative: <12 Indeterminate: 12 - 20 Low-Med Positive: >20 - 80 High Positive: >80 Performed at: [email or web address] [id number] Spray Stainer: Sangeeta Weiner MD, Phone: [phone] 101 Result: Negative (no mutation found) Factor V Leiden is a specific mutation ([id number]) in the factor V gene that is associated with an increased risk of venous thrombosis. Factor V Leiden is more resistant to inactivation by activated protein C. As a result, factor V persists in the circulation leading to a mild hyper- coagulable state. The Leiden mutation accounts for 90% - 95% of APC resistance. Factor V Leiden has been reported in patients with deep vein thrombosis, pulmonary embolus, central retinal vein occlusion, cerebral sinus thrombosis and hepatic vein thrombosis. Other risk factors to be considered in the workup for venous thrombosis include the [id number] mutation in the factor II (prothrombin) gene, protein S and C deficiency, and antithrombin deficiencies. Anticardiolipin antibody and lupus anticoagulant analysis may be appropriate for certain patients, as well as homocysteine levels. Contact your local [facility] for information on how to order additional testing if desired. 102 Genetic counselors are available for health care providers to discuss results at [phone]). Methodology: DNA analysis of the Factor V gene was performed by allele- specific PCR. The diagnostic sensitivity and specificity is >99% for both. Molecular-based testing is highly accurate, but as in any laboratory test, diagnostic errors may occur. All test results must be combined with clinical information for the most accurate interpretation. References: Margo Costa (1996). Clin Lab Med 16:169-186. Shelbie Crowe, PhD Zina Damon, PhD Valorie Beal, PhD Tameka Perrin, PhD Laquita Hwang, PhD Kevon Mosqueda, PhD Performed at: [facility] [id number] Spray Stainer: Conor Smith MD, Phone: [phone] 103 Normal adult hemoglobin present. Performed at: - [facility] [id number] Spray Stainer: Sangeeta Weiner MD, Phone: [phone] 104 Organism 1 ! URETHRAL AMADOU Quantity ! 50,000 - 100,000 CFU/mL SPECIMEN IS A MIX OF GRAM POSITIVE ORGANISMS CONSISTENT WITH SKIN/VAGINAL CONTAMINATION. SUGGEST REPEAT SPECIMEN IF CLINICALLY INDICATED. 105 Note: Persistent reduction for 3 months or more in an eGFR <60 mL/min/1.73 m2 defines CKD. Patients with eGFR values >/=60 mL/min/1.73 m2 may also have CKD if evidence of persistent proteinuria is present. The original MDRD equation for estimated GFR is not valid for patients less than 18 years of age. Additional information may be found at www.kdoqi.org. 106 Elevated levels of HbA1c suggest the need for more aggressive treatment of glycemia. The [place] [employer] recommends that a primary goal of therapy should be a HbA1c of <7% and that physicians should re-evaluate the treatment regimen in patients with HbA1c values consistently >8%. 107 FIRST MORNING SPECIMENS GENERALLY CONTAIN THE HIGHEST CONCENTRATION OF HCG AND ARE RECOMMENDED FOR EARLY DETECTION OF . 108 RUN DATE: 05/27/14 [facility] LAB LIVE PAGE 1 RUN TIME: [address] [place] [id number] Specimen Inquiry ---- Name: TANJA LARES Carlton : [address]: Alvarado Kapoor MD Acct: [id number] Unit: [id number] AGE: 38 Location: [facility] Re05/24/14 SEX: F Status: DEP ER ---- SPEC: [id number] KELLY: 05/24/[address]: Flora Dueñas NP REQ: [id number] RECD: 05/24/14 STATUS: ISMAEL OG DR: Keyla Kapoor MD _ SOURCE: ENDOCERVIX SPDESC: ORDERED: GC/Chlam RNA ---- Procedure Result Verified Site ---- Chlamydia Trachomatis RNA Final 05/27/14-1405 ML NEGATIVE for Chlamydia trachomatis rRNA GC (N. gonorrhoeae) RNA Final 05/27/14-1422 ML NEGATIVE for Neisseria gonorrhoeae rRNA A negative result does not preclude the presence of a C. trachomatis or N. gonorrhoeae infection because results are dependent on adequate specimen collection, absence of inhibitors, and sufficient rRNA to be detected. Test results may be affected by improper specimen collection, improper storage, technical error, or specimen mixup. Limitations of the Procedure: The Aptima Combo 2 Assay is not intended for the evaluation of suspected sexual abuse or for other medico-legal indications. For those patients for whom a false positive result may have adverse psychosocial impact, the CDC recommends retesting by a method using an alternate technology. Therapeutic failure or success cannot be determined with the Aptima Combo 2 Assay since nucleic acid may persist following appropriate antimicrobial therapy. Results from the Aptima Combo 2 Assay should be interpreted in conjunction with other laboratory and clinical data available to the clinican. CONTINUED ON NEXT PAGE * ML=Testing performed at Main Lab DEPARTMENT OF PATHOLOGY, [address] [place] [address] Kavon Levin M.D. Director [facility] # [id number] RUN DATE: 05/27/14 [facility] LAB LIVE PAGE 2 RUN TIME: [address] [place] [address] Specimen Inquiry ---- Patient: TANJA LARES N [id number] (Continued) ---- Specimen: [id number] Collected: 05/24/14 Received: 05/24/14 (Continued) ---- Procedure Result Verified Site ---- GC (N. gonorrhoeae) RNA Final (continued) 05/27/14-142 Performance characteristics for detecting C. trachomatis and N. gonorrhoeae are derived from high prevalence populations. Positive results in low prevalence populations should be interpreted carefully with the understanding that the likelihood of a false positive may be higher than a true positive. ---- END OF REPORT * ML=Testing performed at Main Lab DEPARTMENT OF PATHOLOGY, [facility] [employer] [place], [place] [address] Kavon Levin M.D. Director CLIA # [id number] 109 RUN DATE: 05/25/14 [facility] LAB LIVE PAGE 1 RUN TIME: 1342 [facility] [employer] [place], [place] [address] Specimen Inquiry ---- Name: TANJA LARES : [address]: Alvarado Kapoor MD Acct: [id number] Unit: [id number] AGE: 38 Location: [facility] Re05/24/14 SEX: F Status: DEP ER ---- SPEC: [id number] KELLY: 05/24/14-165[facility] DR: Flora Dueñas NP REQ: [id number] RECD: 05/24/14 STATUS: [facility] DR: eKyla Kapoor MD _ SOURCE: VAGINAL SPDESC: ORDERED: Affirm ---- Procedure Result Verified Site ---- Affirm Vaginal DNA Probe Final 05/25/14-1342 ML Organism 1 Negative Trichomonas Organism 2 Negative Gardnerella Organism 3 POSITIVE GRIS The presence of G. vaginalis, although suggestive, is not diagnostic for bacterial vaginosis. Results should be interpreted in conjunction with other clinical and laboratory data available. Women with vaginal discharge should be evaluated for risk factors of cervicitis and pelvic inflammatory disease, toxic shock syndrome (S.aureus), and if present, evaluated for organisms not included in this assay such as N. gonorrhoeae, C. trachomatis, Mobiluncus, Mycoplasma and/or Prevotella. Mixed infections may occur. The performance of this test on patient specimens collected during or immediately after antimicrobial therapy is unknown. The presence or absence of Gris species, G. vaginalis or T. vaginalis cannot be used as a test for therapeutic success or failure. ---- END OF REPORT * ML=Testing performed at Main Lab DEPARTMENT OF PATHOLOGY, [facility] [employer] [place], [place] [address] Kavon Levin M.D. Director YAHAIRA # [id number] 110 RUN DATE: 05/26/14 [facility] LAB LIVE PAGE 1 RUN TIME: 9[address] [facility] [employer] [place], [place] [address] Specimen Inquiry ---- Name: TANJA LARES : [address]: Alvarado Kapoor MD Acct: [id number] Unit: [id number] AGE: 38 Location: [facility] Re05/24/14 SEX: F Status: DEP ER ---- SPEC: [id number] KELLY: 05/24/14-1609 [facility] [address]: Flora Dueñas NP REQ: [id number] RECD: 05/24/14 STATUS: ISMAEL OG DR: [facility] Keyla JARRETT _ SOURCE: URINE SPDESC: ORDERED: Urine Culture ---- Procedure Result Verified Site ---- Urine Culture Final 05/26/14-0947 ML Organism 1 STREP GROUP B [place] Count 10-25,000 (Moderate) CFU/ML Organism 2 NORMAL AMADOU [place] Count 10-25, 000 (Moderate) CFU/ML Susceptibility testing of penicillins and other B-lactams approved by FDA for treatment of Streptococcus pyogenes (Group A Strep) and Streptococcus agalactiae (Group B Strep) is not necessary for clinical purposes and need not be done routinely, since as with vancomycin, resistant strains have not been recognized. (CLSI X368-Y98;p.66) Positive isolates will be saved for one week. Please call the Microbiology Laboratory if further susceptibility testing is needed. ---- END OF REPORT * ML=Testing performed at Main Lab DEPARTMENT OF PATHOLOGY, [address] [place] [address] Kavon Levin M.D. Director [facility] # [id number] 111 Note: Persistent reduction for 3 months or more in an eGFR <60 mL/min/ 1.73 m2 defines CKD. Patients with eGFR values >/=60 mL/min/1.73 m2 may also have CKD if evidence of persistent proteinuria is present. The original MDRD equation for estimated GFR is not valid for patients less than 18 years of age. Additional information may be found at www.kdoqi.org. 112 A1c value between 5.7% and 6.4% is considered at increased risk for diabetes. A1c value greater than 6.5 % is considered essentially diagnostic for Type II diabetes. Current guidelines recommend a treatment goal of <7% for diabetic patients. This method will measure glycosylated hemoglobin variants, HbS, HbG , HbH, HbWayne, HbC, HbE, etc. Other hemoglobin- opathies may give incorrect results with this test. 113 FIRST MORNING SPECIMENS GENERALLY CONTAIN THE HIGHEST CONCENTRATION OF HCG AND ARE RECOMMENDED FOR EARLY DETECTION OF . 114 OPERATION/PROCEDURE Hysteroscopy; D\\E&E\\C; polypectomy DIAGNOSIS: "ENDOMETRIUM, HYSTEROSCOPY/D\\E&E\\C/POLYPECTOMY": DISORDERED PROLIFERATIVE ENDOMETRIUM, SUPPORTIVE OF BENIGN ENDOMETRIAL POLYP. MCKENZIE/nilam 1202 GROSS "ENDOMETRIAL CURETTINGS WITH POLYPOID TISSUE". The specimen is received in an appropriately labeled container. This contains 3.0 mL of pink tissue admixed with mucus. Filtered and submitted in toto within a single cassette. DEMETRIUS/inlam MICROSCOPIC Sections reveal cytologically bland, pseudostratified, proliferative, mitotically active epithelium having a slightly increased kingnj-yl-furyjoo ratio. The glands show shallow budding focally, but overall are tubular, narrow caliber, within abundant stroma. PRE OPERATIVE DIAGNOSIS Menometrorrhagia; endometrial polyp REVIEW CODE CODE: I ---- DONALD Good MD 07/11/13 1255 ---- 115 OPERATION/PROCEDURE Endometrial biopsy DIAGNOSIS: "ENDOMETRIAL BIOPSY": FRAGMENTS OF CILIATED METAPLASTIC ENDOMETRIUM, CONSISTENT WITH DYSFUNCTIONAL UTERINE BLEEDING. DEMETRIUS/bob INTERPRETATION COMMENT No recent biopsy is available to be reviewed. GROSS "ENDOMETRIAL BIOPSY". The specimen is received in an appropriately labeled container. This contains 1.0 mL of pink tissue admixed with mucus. Filtered and submitted in toto within a single cassette. /shavonne MICROSCOPIC Sections reveal ciliated metaplastic tubular glands in a spindled stroma. The glands are tubular, largely stratified, and mitotically active. PRE OPERATIVE DIAGNOSIS Excessive or frequent menses REVIEW CODE CODE: I ---- JOSHUA Brennan MD 06/17/13 1426 ---- 116 This high-risk HPV test detects thirteen high-risk types (16/18/31/33/35/39/45/51/52/56/58/59/68) without differentiation. Performed at: - [address] [id number] Spray Stainer: Sangeeta Weiner MD, Phone: [phone] 117 CYTOLOGY SCREENER - SITE PHYSICIAN @ 10/29 Screened by: Yoon Triana [facility](ASCP) PAP: FINAL REPORT SPECIMEN ADEQUACY: SPECIMEN SATISFACTORY FOR INTERPRETATION SAMPLE VIAL SENT OUT FOR HPV TESTING AT CLINICIAN'S REQUEST INTERPRETATION: ATYPICAL SQUAMOUS CELLS OF UNDETERMINED SIGNIFICANCE REACTIVE ENDOCERVICAL CELLS COMMENT: HIGH RISK HPV TEST ([id number]): NEGATIVE THINPREP PREPARED PAP SLIDE # Prepared in the Cytology laboratory from the ThinPrep sample is 1 ThinPrep smear. PAP ACCESSI QUESTIONNAIRE 09/27 PERTINENT CLINICAL HISTORY FOR PAP (SITE PHYSICIAN) CYTOLOGY (Check all that apply): ? Post ? Menopause? LMP date: 05/05/13 Last Pap: at [facility]? Abnormal Pap? Y If Yes, date: 2006 If patient had related surgical procedure: Related Therapy: Significant Clinical History: V76.2 ==== DISCLAIMER: The Pap smear is a screening test and not a diagnostic procedure. False negative and false positive results can and do occur for a number of reasons. Regular screening provides an aid in detecting treatable cervical abnormalities, but should not be used as the only means for detecting cervical dysplasia and carcinoma. ---- JOSHUA Brennan MD 05/29/13 1529 ---- 118 RUN DATE: 01/25/13 [facility] LAB LIVE PAGE 1 RUN TIME: 1040 [address] [place], [place] [address] Specimen Inquiry ---- Name: TANJA MAHNA : [address]: Daniel Lewis MD Acct: [id number] Unit: [id number] AGE: 37 Location: [facility] Re01/23/13 SEX: F Status: DEP ER ---- SPEC: [id number] KELLY: 01/23/13 [facility] DR: Daniel Lewis MD REQ: [id number] RECD: 01/23/13 STATUS: ISMAEL OG DR: Keyla Rosa PA _ SOURCE: URINE SPDESC: ORDERED: Urine Culture ---- Procedure Result Verified Site ---- Urine Culture Final 01/25/13-1039 ML Organism 1 NORMAL AMADOU [place] Count 75-100,000 (Many) CFU/ML ---- END OF REPORT * ML=Testing performed at Main Lab DEPARTMENT OF PATHOLOGY, [facility] [employer] [place], [place] [address] Kavon Levin M.D. Director [facility] Permit # [id number] RUN DATE: 01/25/13 [facility] LAB LIVE PAGE 1 RUN TIME: 1406 [facility] [employer] [place], [place] [address] Specimen Inquiry ---- Name: TANJA MAHAN : [address]: Daniel Lewis MD Acct: [id number] Unit: [id number] AGE: 37 Location: [facility] Re01/23/13 SEX: F Status: DEP ER ---- SPEC: [id number] KELLY: 01/23/13-0 [facility] DR: Daniel Lewis MD REQ: [id number] RECD: 01/23/13 STATUS: ISMAEL OG DR: Keyla Rosa PA _ SOURCE: ENDOCERVIX SPDESC: ORDERED: Chlamydia RNA, GC RNA ---- Procedure Result Verified Site ---- Chlamydia Trachomatis RNA Final 01/25/13-1406 ML NEGATIVE for Chlamydia trachomatis rRNA A negative result does not preclude the presence of a C. trachomatis or N. gonorrhoeae infection because results are dependent on adequate specimen collection, absence of inhibitors, and sufficient rRNA to be detected. Test results may be affected by improper specimen collection, improper storage, technical error, or specimen mixup. Limitations of the Procedure: The Aptima Combo 2 Assay is not intended for the evaluation of suspected sexual abuse or for other medico-legal indications. For those patients for whom a false positive result may have adverse psychosocial impact, the [facility] recommends retesting by a method using an alternate technology. Therapeutic failure or success cannot be determined with the Aptima Combo 2 Assay since nucleic acid may persist following appropriate antimicrobial therapy. Results from the Aptima Combo 2 Assay should be interpreted in conjunction with other laboratory and clinical data available to the clinican. Performance characteristics for detecting C. trachomatis and N. gonorrhoeae are derived from high prevalence populations. Positive results in low prevalence populations should be interpreted carefully with the understanding that the CONTINUED ON NEXT PAGE * ML=Testing performed at Main Lab DEPARTMENT OF PATHOLOGY, [facility] [employer] [place] [id number] Kavon Levin M.D. Director [facility] Permit #[id number] RUN DATE: 01/25/13 [facility] LAB LIVE PAGE 2 RUN TIME: 1406 [facility] [employer] [place], [place] [address] Specimen Inquiry ---- Patient: TANJA MAHAN [id number] (Continued) ---- Specimen: [id number] Collected: 01/23/13 Received: 01/23/13 (Continued) ---- Procedure Result Verified Site ---- Chlamydia Trachomatis RNA Final (continued) 01/25/13-1406 likelihood of a false positive may be higher than a true positive. GC (N. gonorrhoeae) RNA Final 01/25/13-1404 ML NEGATIVE for Neisseria gonorrhoeae rRNA A negative result does not preclude the presence of a C. trachomatis or N. gonorrhoeae infection because results are dependent on adequate specimen collection, absence of inhibitors, and sufficient rRNA to be detected. Test results may be affected by improper specimen collection, improper storage, technical error, or specimen mixup. Limitations of the Procedure: The Aptima Combo 2 Assay is not intended for the evaluation of suspected sexual abuse or for other medico-legal indications. For those patients for whom a false positive result may have adverse psychosocial impact, the CDC recommends retesting by a method using an alternate technology. Therapeutic failure or success cannot be determined with the Aptima Combo 2 Assay since nucleic acid may persist following appropriate antimicrobial therapy. Results from the Aptima Combo 2 Assay should be interpreted in conjunction with other laboratory and clinical data available to the clinican. Performance characteristics for detecting C. trachomatis and N. gonorrhoeae are derived from high prevalence populations. Positive results in low prevalence populations should be interpreted carefully with the understanding that the likelihood of a false positive may be higher than a true positive. ---- END OF REPORT * ML=Testing performed at Main Lab DEPARTMENT OF PATHOLOGY, [facility] [employer] [place], [place] [address] Kavon Levin M.D. Director [facility] Permit # [id number] 120 RUN DATE: 01/25/13 [facility] LAB LIVE PAGE 1 RUN TIME: [address] [place] [address] Specimen Inquiry ---- Name: TANJA MAHAN [place] : [address]: Daniel Lewis MD Acct: [id number] Unit: [id number] AGE: 37 Location: [facility] Re01/23/13 SEX: F Status: DEP ER ---- SPEC: [id number] KELLY: 01/23/13-1699 [facility] [address]: Daniel Lewis MD REQ: [id number] RECD: 01/23/13 STATUS: RES [facility] DR: Keyla Rosa PA _ SOURCE: ENDOCERVIX SPDESC: ORDERED: Chlamydia RNA, GC RNA ---- Procedure Result Verified Site ---- Chlamydia Trachomatis RNA PENDING (N. gonorrhoeae) RNA Final 01/25/13-1404 ML NEGATIVE for Neisseria gonorrhoeae rRNA A negative result does not preclude the presence of a C. trachomatis or N. gonorrhoeae infection because results are dependent on adequate specimen collection, absence of inhibitors , and sufficient rRNA to be detected. Test results may be affected by improper specimen collection, improper storage, technical error, or specimen mixup. Limitations of the Procedure: The Aptima Combo 2 Assay is not intended for the evaluation of suspected sexual abuse or for other medico-legal indications. For those patients for whom a false positive result may have adverse psychosocial impact, the CDC recommends retesting by a method using an alternate technology. Therapeutic failure or success cannot be determined with the Aptima Combo 2 Assay since nucleic acid may persist following appropriate antimicrobial therapy. Results from the Aptima Combo 2 Assay should be interpreted in conjunction with other laboratory and clinical data available to the clinican. Performance characteristics for detecting C. trachomatis and CONTINUED ON NEXT PAGE * ML=Testing performed at Main Lab DEPARTMENT OF PATHOLOGY, [facility] [employer] [place], [place] [address] Kavon Levin M.D. Director [facility] Permit #[id number] RUN DATE: 01/25/13 [facility] LAB LIVE PAGE 2 RUN TIME: [address] [facility] [employer] [place], [place] [address] Specimen Inquiry ---- Patient: TANJA MAHAN [id number] (Continued) ---- Specimen: [id number] Collected: 01/23/13 Received: 01/23/13 (Continued) ---- Procedure Result Verified Site ---- GC (N. gonorrhoeae) RNA Final (continued) 01/25/13-1404 N. gonorrhoeae are derived from high prevalence populations. Positive results in low prevalence populations should be interpreted carefully with the understanding that the likelihood of a false positive may be higher than a true positive. ---- END OF REPORT * ML=Testing performed at Main Lab DEPARTMENT OF PATHOLOGY, [employer] [place], [place] [address] Kavon Levin M.D. Director [facility] Permit # [id number] 121 RUN DATE: 01/24/13 [facility] LAB LIVE PAGE 1 RUN TIME: [address] [facility] [employer] [place], [place] [address] Specimen Inquiry ---- Name: YANN MAHANGLORY Vincent : [address]: Daniel Lewis MD Acct: [id number] Unit: [id number] AGE: 37 Location: [facility] Re01/23/13 SEX: F Status: DEP ER ---- SPEC: [id number] KELLY: 01/23/13-1699 [facility] DR: Daniel Lewis MD REQ: [id number] RECD: 01/23/13 STATUS: COMP [facility] DR: Keyla Rosa PA _ SOURCE: VAGINAL SPDESC: ORDERED: Affirm ---- Procedure Result Verified Site ---- Affirm Vaginal DNA Probe Final 01/24/13-1428 ML Trichomonas Negative Gardnerella Positive Gris Negative The presence of G. vaginalis, although suggestive, is not diagnostic for bacterial vaginosis. Results should be interpreted in conjunction with other clinical and laboratory data available. Women with vaginal discharge should be evaluated for risk factors of cervicitis and pelvic inflammatory disease, toxic shock syndrome (S.aureus), and if present, evaluated for organisms not included in this assay such as N. gonorrhoeae, C. trachomatis, Mobiluncus, Mycoplasma and/or Prevotella. Mixed infections may occur. The performance of this test on patient specimens collected during or immediately after antimicrobial therapy is unknown. The presence or absence of Gris species, G. vaginalis or T. vaginalis cannot be used as a test for therapeutic success or failure. ---- END OF REPORT * ML=Testing performed at Main Lab DEPARTMENT OF PATHOLOGY, [address] [place] [address] Kavon Levin M.D. Director [facility] Permit # [id number] 122 Therapeutic target for the treatment of diabetes Mellitus patients is <7% HBA1C, and in selective patients <6.0%.Please refer to [place] [employer] Diabetic care guidelines for further information. 123 HDL Interpretation: Undesirable: High Risk: Less than 40 MG/DL Desirable: Low Risk: Greater than 60 MG/DL 124 LDL Interpretation: Low Risk Optimal Level: LDL Less than 100 MG/DL Near or Above Optimal: LDL 100-129 MG/DL Borderline High Risk: LDL 130-159 MG/DL High Risk : LDL 160-189 MG/DL Very High Risk: LDL Greater than 189 MG/DL 125 RUN DATE: 09/27/12 [facility] LAB LIVE PAGE 1 RUN TIME: [address] [place] [address] Specimen Inquiry ---- Name: YANN MAHANGLORY Vincent : [address]: Daniel Lewis MD Acct: [id number] Unit: [id number] AGE: 36 Location: [facility] Re09/25/12 SEX: F Status: DEP ER ---- SPEC: [id number] KELLY: 09/25/1256 [facility] DR: Daniel Lewis MD REQ: [id number] RECD: 09/25/121 STATUS: COMP [facility] DR: Keyla Rosa PA _ SOURCE: THROAT SPDESC: ORDERED: Throat Beta Str ---- Procedure Result Verified Site ---- Throat Beta Strep Culture Final 09/27/12-5981 ML Negative For Group A Beta Streptococcus ---- END OF REPORT * ML=Testing performed at Main Lab DEPARTMENT OF PATHOLOGY, [address] [place] [address] Kavon Levin M.D. Director [facility] Permit # [id number] 126 Because ethnic data is not always readily available, this report includes an eGFR for both -Americans and non- Americans. The National Kidney Disease Education Program (NKDEP) does not endorse the use of the MDRD equation for patients that are not between the ages of 18 and 70, are , have extremes of body size, muscle mass, or nutritional status, or are non- or non-. According to the National Kidney Foundation, irrespective of diagnosis, the stage of the disease is based on the level of kidney function: Stage Description GFR(mL/min/1.73 m(2)) 1 Kidney damage with normal or decreased GFR 90 2 Kidney damage with mild decrease in GFR 60- 89 3 Moderate decrease in GFR 30-59 4 Severe decrease in GFR 15-29 5 Kidney failure <15 (or dialysis) 127 Therapeutic target for the treatment of diabetes Mellitus patients is <7% HBA1C, and in selective patients <6.0%.Please refer to [place] [employer] Diabetic care guidelines for further information. 128 HDL Interpretation: Undesirable: High Risk: Less than 40 MG/DL Desirable: Low Risk: Greater than 60 MG/DL 129 LDL Interpretation: Low Risk Optimal Level: LDL Less than 100 MG/DL Near or Above Optimal: LDL 100-129 MG/DL Borderline High Risk: LDL 130-159 MG/DL High Risk : LDL 160-189 MG/DL Very High Risk: LDL Greater than 189 MG/DL 130 [facility] [address] [place] [address], [address] [place] [address] SURGICAL PATHOLOGY REPORT Name: Tanja Mahan Pathology #: [id number] : 1975 (Age: 36) Sex: F Location: [facility] Med. Rec. # Date of Procedure: 07/02/2012 Billing #: [id number] Date Received: 07/02/2012 Physician(s): [facility] Specimen(s) Received: Cyst right inner thigh Clinical Information: Sebaceous cyst right inner thigh. Gross Description: Specimen received in formalin labeled with the patient's name is an irregular portion of skin measuring 0.8 x 0.8 cm excised to a depth of 0.3 cm. The skin surface is wrinkled and finely granular. The specimen is trisected and submitted entirely. (1 block) james /KBS Diagnosis: RIGHT INNER THIGH, SPECIMEN CONSISTS OF BENIGN SKIN AND ADIPOSE TISSUE. NO CYSTS IDENTIFIED ON MULTIPLE LEVELS. Reported: 07/03/2012 Electronic Signature scarlett Flores MD [facility] ICD-9 Codes: 795.4 131 ------- RUN DATE: 05/04/12 [facility] NMI LIVE PAGE 1 RUN TIME: 936 Specimen Inquiry RUN USER: INTERFACE ---- Name: TANJA MAHAN Status: DEP CLI Re05/03 Age/Sex: 36/F Unit#: [id number] [facility] [birth year] ---- SPEC #: [id number] KELLY: 05/03/129724 STATUS: RES REQ #: [id number] RECD: 05/03/12 [facility] [address]: David Grey MD SOURCE: URINE ENTR: 05/03/121852 [facility] DR[facility]: ORDERED: URINE C S QUERIES: SPECIMEN DESCRIPTION: URINE, CLEAN CATCH ACT WKST: UR 05/04/12 #1 ---- Procedure Result Verified Site ---- > URINE CULTURE SENSITIVI Preliminary 05/04/12 ML CULTURE UNDER INCUBATION ---- [facility] Permit #[id number] [address] [place] [address] ---- DEPARTMENT OF PATHOLOGY, [address] [place] [address] [facility] Permit #[id number] Angela Carreon M.D. Tube Inspector ---- 132 THERAPEUTIC TARGET FOR THE TREATMENT OF DIABETES MELLITUS PATIENTS IS <7% HBA1C, AND IN SELECTIVE PATIENTS <6.0%. PLEASE REFER TO [employer]ATION DIABETIC CARE GUIDELINES FOR FURTHER INFORMATION. 133 Anion gap measurement may be of limited value in the presence of any alkalosis, especially in a combined acid base disorder. . 134 Because ethnic data is not always readily available, this report includes an eGFR for both -Americans and non- Americans. The National Kidney Disease Education Program (NKDEP) does not endorse the use of the MDRD equation for patients that are not between the ages of 18 and 70, are , have extremes of body size, muscle mass, or nutritional status, or are non- or non-. According to the National Kidney Foundation, irrespective of diagnosis, the stage of the disease is based on the level of kidney function: Stage Description GFR(mL/min/1.73 m(2)) 1 Kidney damage with normal or decreased GFR 90 2 Kidney damage with mild decrease in GFR 60- 89 3 Moderate decrease in GFR 30-59 4 Severe decrease in GFR 15-29 5 Kidney failure <15 (or dialysis) 135 THERAPEUTIC TARGET FOR THE TREATMENT OF DIABETES MELLITUS PATIENTS IS <7% HBA1C, AND IN SELECTIVE PATIENTS <6.0%. PLEASE REFER TO [employer]ATION DIABETIC CARE GUIDELINES FOR FURTHER INFORMATION. 136 Anion gap measurement may be of limited value in the presence of any alkalosis, especially in a combined acid base disorder. . 137 Because ethnic data is not always readily available, this report includes an eGFR for both -Americans and non- Americans. The National Kidney Disease Education Program (NKDEP) does not endorse the use of the MDRD equation for patients that are not between the ages of 18 and 70, are , have extremes of body size, muscle mass, or nutritional status, or are non- or non-. According to the [employer], irrespective of diagnosis, the stage of the disease is based on the level of kidney function: Stage Description GFR(mL/min/1.73 m(2)) 1 Kidney damage with normal or decreased GFR 90 2 Kidney damage with mild decrease in GFR 60- 89 3 Moderate decrease in GFR 30-59 4 Severe decrease in GFR 15-29 5 Kidney failure <15 (or dialysis) 138 CHOLESTEROL INTERPRETATION: Desirable: Less than 200 MG/DL Borderline- High Risk: 200-239 MG/DL High-Risk: 240 MG/DL and over 139 HDL INTERPRETATION: Undesirable: High Risk: Less than 40 MG/DL Desirable: Low Risk: Greater than 60 MG/DL 140 LDL INTERPRETATION: Low Risk Optimal Level: LDL Less than 100 MG/DL Near or Above Optimal: LDL 100-129 MG/DL Borderline High Risk: LDL 130-159 MG/DL High Risk : LDL 160-189 MG/DL Very High Risk: LDL Greater than 189 MG/DL 141 A metabolite of Naproxen, O-desmethylnaproxen, has been shown to interfere with the Jendrassik-Omer method for measuring total bilirubin. Samples from patients who have taken Naproxen have shown spurious elevation in total bilirubin levels. 142 Please note updated reference range, effective 04/08/10 Procedures Date Code Description Status 04/05/2017 [id number] Mammogram Completed 07/22/2016 67311 Echocardiogram Complete Completed 06/29/2012 18021 Exc.Roldan.Lesion/0.6 To 1.0 cm Completed Encounters Type Date Location Provider Dx Diagnosis Office Visit 07/31/2018 [facility] [place], I10 Essential (primary) 10:30a Office [facility] hypertension R51 Headache F41.9 Anxiety disorder, unspecified F34.1 Dysthymic disorder Office Visit 06/29/2018 9:30a [facility] [place], I10 Essential ( primary) Office [facility] hypertension R82.90 Unspecified abnormal findings in urine E78.5 Hyperlipidemia, unspecified Office Visit 12/28/2017 9:30a [facility] [place], I10 Essential ( primary) Office [facility] hypertension F34.1 Dysthymic disorder J06.9 Acute upper respiratory infection, unspecified Office Visit 07/19/2017 10:45a [facility] [place], I10 Essential ( primary) Office [place], [facility] hypertension Office Visit 07/05/2017 9:00a [facility] [place], I10 Essential ( primary) Office [place], [facility] hypertension Office Visit 04/05/2017 9:00a [facility] [place], I10 Essential ( primary) Office [facility] hypertension F43.23 Adjustment disorder with mixed anxiety and depressed mood E78.5 Hyperlipidemia, unspecified Office Visit 01/27/2017 2:45p [facility] [place], N61.0 Mastitis without Office [place], [facility] abscess I10 Essential (primary) hypertension F43.23 Adjustment disorder with mixed anxiety and depressed mood Office Visit 11/25/2016 2:00p [facility] [place], I10 Essential ( primary) Office [place], [facility] hypertension Office Visit 09/20/2016 9:45a [facility] [place], I10 Essential ( primary) Office [place], [facility] hypertension K21.9 Gastro-esophageal reflux disease without esophagitis Office Visit 08/16/2016 10:00a [facility] [place], I10 Essential ( primary) Office [place], [facility] hypertension Office Visit 07/15/2016 9:15a [facility] [place], I10 Essential ( primary) Office [place], [facility] hypertension F43.23 Adjustment disorder with mixed anxiety and depressed mood Office Visit 06/30/2016 10:30a [facility] [place], I10 Essential ( primary) Office [place], [facility] hypertension F43.23 Adjustment disorder with mixed anxiety and depressed mood Office Visit 04/11/2016 2:45p [facility] [place], I10 Essential ( primary) Office [place], [facility] hypertension F43.23 Adjustment disorder with mixed anxiety and depressed mood Office Visit 03/17/2016 2:00p [facility] [place], I10 Essential ( primary) Office [place], [facility] hypertension F43.23 Adjustment disorder with mixed anxiety and depressed mood Office Visit 03/04/2016 1:45p [facility] [place], I10 Essential ( primary) Office [place], [facility] hypertension Office Visit 11/11/2015 2:45p [facility] [place], I10 Essential ( primary) Office [place], [facility] hypertension Office Visit 07/14/2015 10:45a [facility] [place], N91.2 Amenorrhea, Office [place], [facility] unspecified E87.6 Hypokalemia Office Visit 05/11/2015 10:00a [facility] [place], 401.1 Hypertension Benign Office [place], [facility] 790.6 Abnormal Blood Chemistry Other 628.8 Infertility Female Spec Origin Other Plan of Treatment 10/15/2018 - Keyla Rosa, [id number] Essential (primary) hypertensionNew Medication:Irbesartan 300 mg - 1 by mouth every dayComments:Current medication(s ): Atenolol 25mg BID, HCTZ 25mg daily , Irbesartan 150mg daily Adjust the irbesartan dose...Follow up:2 [id number] Dysthymic disorderComments:Current tx : Citalopram 40mg sbcflK24.35 Body mass index (BMI) 35.0-35.9, adultComments: Has appt for bariatric consult pending
[2018-11-02 08:15] VITALS: BP 143/80
--- NOTE | 2018-11-02 08:27 | UC ---
Throat Pain/Nasal [place] HPI - HPI Summary HPI Summary: nasal congestion x 2 day + pnd, no cough, no sore throat, no fever, no chills, no body aches - History of Current Complaint Chief Complaint: UCRespiratory Stated Complaint: SINUS CONCERN Time Seen by Provider: 11/02/18 08:11 Hx Obtained From: Patient Hx Last Menstrual Period: 10/07/18 Onset/Duration: Gradual Onset, Lasting Days - 2, Still Present Severity: Moderate Pain Intensity: 0 Cough: None Associated Signs & Symptoms: Positive: Nasal Discharge. Negative: Sinus Discomfort, Fever, Rash - Allergies/Home Medications Allergies/Adverse Reactions: Allergies Allergy/AdvReac Type Severity Reaction Status Date / Time No Known Allergies Allergy Verified 11/02/18 08:07 Home Medications: Home Medications Ibuprofen/Pseudoephedrine HCl [Advil Cold & Sinus] 1 tab PO PRN 11/02/18 [ History] Irbesartan 300 mg PO DAILY 11/02/18 [History Confirmed 11/02/18] PMH/Surg Hx/FS Hx/Imm Hx Cardiovascular History: Hypertension - Surgical History Surgical History: Yes Surgery Procedure, Year, and Place: OVARIAN CYSTECTOMY. RIGHT WRIST SURGERY - Family History Known Family History: Positive: Hypertension, Other - no related issues. - Social History Alcohol Use: Occasionally Substance Use Type: None Smoking Status (MU): Former Smoker Have You Smoked in the Last Year: No When Did the Patient Quit Smoking/Using Tobacco: 05/2016 Household Exposure Type: Cigarettes - Immunization History Most Recent Influenza Vaccination: no Review of Systems All Other Systems Reviewed And Are Negative: Yes Constitutional: Positive: Negative Skin: Positive: Negative Eyes: Positive: Negative ENT: Positive: Nasal Discharge Respiratory: Positive: Negative Is Patient Immunocompromised?: No Physical Exam Triage Information Reviewed: Yes Appearance: Well-Appearing, No Pain Distress, Obese Vital Signs: Initial Vital Signs Temp 98.2 F 11/02/18 08:10 Pulse 81 11/02/18 08:10 Resp 16 11/02/18 08:10 BP 143/80 11/02/18 08:10 Pulse Ox 99 11/02/18 08:10 Vital Signs Reviewed: Yes Eye Exam: Normal Eyes: Positive: Conjunctiva Clear ENT: Positive: Normal ENT inspection, Hearing grossly normal, Pharynx normal, Nasal congestion, TMs normal. Negative: Tonsillar swelling, Tonsillar exudate Neck: Positive: Supple, Nontender, No Lymphadenopathy Respiratory: Positive: Chest non-tender, Lungs clear, Normal breath sounds Cardiovascular: Positive: RRR, No Murmur, Pulses Normal Skin Exam: Normal Throat Pain/Nasal Course/Dx - Differential Dx/Diagnosis Provider Diagnosis: URI (upper respiratory infection) Discharge - Sign-Out/Discharge Documenting (check all that apply): Patient Departure All imaging exams completed and their final reports reviewed: No Studies - Discharge Plan Condition: Stable Disposition: HOME Patient Education Materials: Upper Respiratory Infection (DC) Forms: *Work Release Referrals: Keyla Rosa PA [Primary Care Provider] - If Needed - Billing Disposition and Condition Condition: STABLE Disposition: Home
[2018-11-02 08:36] LABS: Influenza A Molecular NEGATIVE (Negative); Influenza B Molecular NEGATIVE (Negative)
== END 2018-11-02 08:28 | disposition home or self-care (01) ==
LOC: UCCORT 08:00
DX: J06.9 Acute upper respiratory infection, unspecified (principal); I10 Essential (primary) hypertension; Z87.891 Personal history of nicotine dependence
CPT/HCPCS: 99211; G0463